=== PATIENT | male | born 2000 | race Hispanic/Latino ===

== ENCOUNTER 2022-02-20 22:56 | Inpatient (IN) | payer OTHER ==
--- OUTSIDE RECORDS SUMMARY | 2022-02-20 22:59 | XMS REPORT | Continuity of Care Document ---
:2000 Author Organization [facility] t Address [address] [place] [address] Care Team Providers Name Role Phone Triston Arreguin Primary Care Physician Only, Ang Db Test Attending Clinician Unavailable Daniel Terrazas Attending Clinician DANIEL MENON Attending Clinician Unavailable Dolly Sorto Attending Clinician DOLLY VERMA Attending Clinician Unavailable Neisha Barnett DO Attending Clinician Doctor Unassigned, [place] Attending Clinician Unavailable Only, Pcp Test Attending Clinician Unavailable Asa Denis MD Attending Clinician ASA DENIS Attending Clinician Unavailable Payers Payer Name Policy Type Policy Number Effective Date Expiration Date S ource Problems Condition Condition Condition Status Onset Resolution Last Treating Co mments Source Name Details Category Date Date Treatment Clinician Date Elevated Elevated Disease Active 2018-06 Unive rs IgE level IgE level 0-29 ity of 00:00: [address] Tobacco Tobacco Disease Active 2018-06 Univers use use 0-25 ity of disorder disorder 00:00: [address] Reactive Reactive Disease Active 2018-06 Unive rs thrombocyt thrombocyt 0-25 it y of osis osis 00:00: [address] Elevated Elevated Disease Active 2018-06 Unive rs sed rate sed rate 0-25 ity of 00:00: [place] 00 [facility] Elevated Elevated Disease Active 2018-06 Unive rs C-reactive C-reactive 0-25 it y of protein protein 00:00: [place] (CRP) (CRP) 00 Medical Branch Acute lung Acute lung Disease Active 2018-06 U nivers injury, injury, 0-25 ity of initial initial 00:00: [place] encounter encounter 00 [facility] laisha Branch Multifocal Multifocal Disease Active 2018-06 U nivers pneumonia pneumonia 0-23 ity of 00:00: [place] 00 [facility] Intractabl Intractabl Disease Active 2018-06 U nivers e vomiting e vomiting 0-22 it y of with with 00:00: [place] nausea nausea 00 Medical [place] Allergies, Adverse Reactions, Alerts Allergy Allergy Status Severity Reaction(s) Onset Inactive Treating Comm ents Source Name Type Date Date Clinician NO KNOWN Drug Active Univers ALLERGIE Class ity of S [facility] Social History Social Habit Start Date Stop Date Quantity Comments Source Exposure to Not sure [facility] SARS-CoV-[address] [facility] (event) [place] Tobacco use and 2019-05-11 2019-05-11 Never used Universit y of exposure 00:00:00 00:00:00 [facility] Alcohol intake 2019-05-11 2019-05-11 Ex-drinker University of 00:00:00 00:00:00 (finding) [facility] Tobacco Comment 2019-04-11 2019-04-11 vapes Universit y of 00:00:00 00:00:00 [facility] History of 2019-04-11 Smoker University of tobacco use 00:00:00 [facility] Sex Assigned At [birth year] Universit y of 00:00:00 00:00:00 [facility] Smoking Status Start Date Stop Date Source Former smoker 2019-05-11 00:00:00 2019-05-11 00:00:00 Universi ty of [facility] Medications Ordered Filled Start Stop Current Ordering Indication Dosage Frequency Signature Comments Components Source Medication Medication Date Date Medication? Clinician (SIG) Name Name predniSONE 2018-06 Yes [id number] 10mg Take 1 Univers 10 mg 1-10 tablet by ity of tablet 00:00: mouth 00 daily. Medical Branch predniSONE 2018-06 Yes [id number] 10mg Take 1 Univers 10 mg 1-10 tablet by ity of tablet 00:00: mouth [place] 00 daily. Medical Branch predniSONE 2018-06 Yes [id number] 10mg Take 1 Univers 10 mg 1-10 tablet by ity of tablet 00:00: mouth [place] 00 daily. Medical Branch predniSONE 2018-06 Yes [id number] 10mg Take 1 Univers 10 mg 1-10 tablet by ity of tablet 00:00: mouth [place] 00 daily. [facility] Branch predniSONE 2018-06 Yes [id number] 10mg Take 1 Univers 10 mg 1-10 tablet by ity of tablet 00:00: mouth [place] 00 daily. [facility] Branch predniSONE 2018-06 Yes [id number] 10mg Take 1 Univers 10 mg 1-10 tablet by ity of tablet 00:00: mouth [place] 00 daily. [facility] Branch predniSONE 2018-06 Yes [id number] 10mg Take 1 Univers 10 mg 1-10 tablet by ity of tablet 00:00: mouth [place] 00 daily. [facility] Branch predniSONE 2018-06 Yes [id number] 10mg Take 1 Univers 10 mg 1-10 tablet by ity of tablet 00:00: mouth [place] 00 daily. [facility] Procedures Procedure Date / Time Performing Clinician Source Performed AUTHORIZATION FOR 2020-04-15 05:01:00 Doctor Unassigned, No [facility] RELEASE OF PHI Name [facility] Encounters Start End Encounter Admission Attending Care Care Encounter Source Date/Time Date/Time Type Type Clinicians Facility Department ID 2021-03-09 2021-03-09 Laboratory Only, Ang Db Test [facility] 1.2.8 40.114 [id number] Univers 13:40:48 13:56:34 Only Karel MenonInfiKno [id number] ity of [place] [id number] Iraj as [place]?Blea [id number] [address] Medical Office Building 2021-03-09 2021-03-09 Outpatient R [facility] [id number] Univers 13:30:00 13:30:00 [id number] ity [facility] 2021-03-09 2021-03-09 Outpatient R LYNSEY [facility] [id number] Univers 13:30:00 13:30:00 DANIEL ity [facility] 2021-03-05 2021-03-05 Laboratory Only, Ang Db Test [facility] 1.2.8 40.114 [id number] Univers 16:04:09 16:22:23 Only Bayron Mardil Medical [id number] ity of [place] [id number] Iraj as [place]?Blea [id number] In dical kney [address] [place] [facility] 2021-03-05 2021-03-05 Outpatient R [facility] [id number] Univers 16:15:00 16:15:00 [id number] ity [facility] 2021-03-05 2021-03-05 [facility] [id number] Univers 16:15:00 16:15:00 DOLLY ity [facility] 2020-04-23 2020-04-23 Telephone Ericka [facility] [id number] Univers 00:00:00 00:00:00 Shivandanan [place] [id number] i [id number] [phone] In dical nal 085 [facility] 2020-04-15 2020-04-15 Orders Doctor SHY [id number] Univers 00:00:00 00:00:00 Only Unassigned, ALLAN [id number] ity of [place] [facility] [id number] Iraj as [id number] [address] 2019-12-08 2019-12-08 Laboratory Only, Pcp Test [facility] 1.2.840. 114 [id number] Univers 18:13:44 18:28:44 Only Asa Denis PRIMARY [id number] [id number] [facility] [id number] In [place] [address] [place] 2019-12-08 2019-12-08 Outpatient R [facility] [id number] Univers 18:15:00 18:15:00 [id number] [facility] 2019-12-[facility] 2019-12-08 Outpatient R JANNETH [facility] [id number] Univers 18:15:00 18:15:00 ASA dali [facility] Results This patient has no known results.
[2022-02-20 23:26] LABS: Absolute Lymphocytes (CBC) 0.6 K/uL (0.7-4.9); Hematocrit 52.5 % (39.6-49.0); MCV 83.1 fL (80-100); MPV 8.9 fL (7.6-11.3); RBC Red Blood Cell Count 6.32 M/uL (4.33-5.43)
[2022-02-20] MEDS ORDERED: ONDANSETRON 4 MG/2 ML VIAL ONE (23:27)
[2022-02-21 00:10] LABS: Albumin 5.5 g/dL (3.4-5.0); Bilirubin Total 1.5 mg/dL (0.2-1.0); Potassium 3.7 mmol/L (3.5-5.1); Protein, Total 9.1 g/dL (6.4-8.2)
[2022-02-21] MEDS ORDERED: MAGNES/ALUMIN/SIMET 30ML UCUP ONE (00:14)
[2022-02-21] MEDS ORDERED: PANTOPRAZOLE 40 MG INJ ONE (00:15)
[2022-02-21] MEDS ORDERED: NA CHLORIDE 0.9% 1,000 ML ONE ×2 (00:15→01:03)
[2022-02-21] MEDS ORDERED: LIDOCAINE VISCOUS 2% SOLN 15 ML UDC ONE (00:15)
[2022-02-21] MEDS ORDERED: LORazepam 2 MG/ML VIAL ONE (00:15)
[2022-02-21] MEDS ORDERED: ONDANSETRON 4 MG/2 ML VIAL ONE (00:15)
--- NOTE | 2022-02-21 00:39 | EDPHYS ---
Physician Documentation [facility] Name: Mynor Soto Age: 22 yrs Sex: Male : 2000 Arrival Date: 02/20/2022 Time: 23:00 Bed 4 Private MD: ED Physician Long Young HPI: 02/21 00:02 This 22 yrs old Male presents to ER via Ambulatory with complaints of Vomiting.jose 00:02 The patient presents to the emergency department with nausea, vomiting, that is jose continuous. Onset: The symptoms/episode began/occurred 2 day(s) ago. Possible causes: unknown. The symptoms are aggravated by nothing. The symptoms are alleviated by remaining still. Associated signs and symptoms: Pertinent positives: abdominal pain, nausea, vomiting. Associated signs and symptoms: The patient has no apparent associated signs or symptoms. Severity of symptoms: At their worst the symptoms were moderate. Historical: - Allergies: 02/20 23:10 No Known Allergies; as6 - Home Meds: 23:10 None [Active]; as6 - PMHx: 23:10 None; as6 - PSHx: 23:10 None; as6 - Immunization history:: Client reports having NOT received the Covid vaccine. - Social history:: Smoking status: Patient denies any tobacco usage or history of. - Family history:: not pertinent. ROS: 02/21 00:02 Constitutional: Negative for fever, chills, and weight loss, Eyes: Negative for injury, jose pain, redness, and discharge, ENT: Negative for injury, pain, and discharge, Neck: Negative for injury, pain, and swelling, Cardiovascular: Negative for chest pain, palpitations, and edema, Respiratory: Negative for shortness of breath, cough, wheezing, and pleuritic chest pain, Back: Negative for injury and pain, : Negative for injury, bleeding, discharge, and swelling, MS/Extremity: Negative for injury and deformity, Skin: Negative for injury, rash, and discoloration, Neuro: Negative for headache, weakness, numbness, tingling, and seizure, Psych: Negative for depression, anxiety, suicide ideation, homicidal ideation, and hallucinations, Allergy/Immunology: Negative for hives, rash, and allergies, Endocrine: Negative for neck swelling, polydipsia, polyuria, polyphagia, and marked weight changes, Hematologic/Lymphatic: Negative for swollen nodes, abnormal bleeding, and unusual bruising. Abdomen/GI: Positive for nausea and vomiting. Psych: Positive for anxiety, depression. Exam: 00:03 Constitutional: This is a well developed, well nourished patient who is awake, alert, jose and in no acute distress. Head/Face: Normocephalic, atraumatic. Eyes: Pupils equal round and reactive to light, extra-ocular motions intact. Lids and lashes normal. Conjunctiva and sclera are non-icteric and not injected. Cornea within normal limits. Periorbital areas with no swelling, redness, or edema. ENT: Nares patent. No nasal discharge, no septal abnormalities noted. Tympanic membranes are normal and external auditory canals are clear. Oropharynx with no redness, swelling, or masses, exudates, or evidence of obstruction, uvula midline. Mucous membranes moist. Neck: Trachea midline, no thyromegaly or masses palpated, and no cervical lymphadenopathy. Supple, full range of motion without nuchal rigidity, or vertebral point tenderness. No Meningismus. Chest/axilla: Normal chest wall appearance and motion. Nontender with no deformity. No lesions are appreciated. Cardiovascular: Regular rate and rhythm with a normal S1 and S2. No gallops, murmurs, or rubs. Normal PMI, no JVD. No pulse deficits. Respiratory: Lungs have equal breath sounds bilaterally, clear to auscultation and percussion. No rales, rhonchi or wheezes noted. No increased work of breathing, no retractions or nasal flaring. Back: No spinal tenderness. No costovertebral tenderness. Full range of motion. Skin: Warm, dry with normal turgor. Normal color with no rashes, no lesions, and no evidence of cellulitis. MS/ Extremity: Pulses equal, no cyanosis. Neurovascular intact. Full, normal range of motion. Neuro: Awake and alert, GCS 15, oriented to person, place, time, and situation. Cranial nerves II-XII grossly intact. Motor strength 5/5 in all extremities. Sensory grossly intact. Cerebellar exam normal. Normal gait. Psych: Awake, alert, with orientation to person, place and time. Behavior, mood, and affect are within normal limits. 00:03 Musculoskeletal/extremity: DVT Exam: No signs of deep vein thrombosis. no pain, no swelling, no tenderness, negative Homans' sign noted on exam, no appreciated bluish discoloration, no erythema, no increased warmth. Vital Signs: 02/20 23:06 BP 160 / 110; Pulse 96; Resp 20 S; Temp 98.3(O); Pulse Ox 98% on R/A; Weight 81.65 kg as6 (R); Height 5 ft. 10 in. (177.80 cm) (R); Pain 4/10; 02/21 00:28 BP 120 / 94; Pulse 91; Resp 23; Pulse Ox 99% on R/A; kd3 02:06 BP 128 / 83; Pulse 82; Resp 19; Pulse Ox 99% on R/A; kd3 03:30 BP 100 / 65; Pulse 78; Resp 19; Pulse Ox 98% on R/A; ll3 02/20 23:06 Body Mass Index 25.83 (81.65 kg, 177.80 cm) as6 MDM: 02/20 23:35 Patient medically screened. [facility] 02/21 00:04 Differential diagnosis: Nonspecific abd pain, gastritis, pancreatitis, diverticulitis, jose viral gastroenteritis, gastroenteritis. Data reviewed: vital signs, nurses notes, lab test result(s), EKG, radiologic studies, plain films. Data interpreted: monitor technician: rate is 96 beats/min, rhythm is regular, Pulse oximetry: on room air is 98 %. Test interpretation: by ED physician or midlevel provider:. Counseling: I had a detailed discussion with the patient and/or guardian regarding: the historical points, exam findings, and any diagnostic results supporting the discharge/admit diagnosis, lab results, radiology results, the need for outpatient follow up, for definitive care, a family practitioner, a psychiatrist. 02/20 23:11 Order name: CBC with Diff; Complete Time: 23:38 02/20 23:11 Order name: CMP; Complete Time: 00:34 [facility] 02/20 23:11 Order name: Lipase; Complete Time: 00:34 02/21 00:02 Order name: UDS; Complete Time: 01:20 [facility] 02/21 00:35 Order name: Uric Acid; Complete Time: 01:14 [facility] 02/21 00:36 Order name: CK; Complete Time: 01:14 [facility] 02/21 00:45 Order name: Pth,Intact; Complete Time: 04:25 la1 02/21 00:46 Order name: Ur Protein; Complete Time: 04:25 EDMS 02/21 00:48 Order name: Vitamin D, 25 (OH), TOTAL; Complete Time: 04:25 EDMS 02/21 00:48 Order name: Vitamin D,1,25 Dihydroxy EDMS 02/21 00:57 Order name: Urine Dipstick-Ancillary; Complete Time: 01:14 EDMS 02/21 01:15 Order name: SARS RAPID; Complete Time: 01:58 jose 02/21 06:59 Order name: Basic Metabolic Panel EDMS 02/21 07:09 Order name: T4 Free EDMS 02/20 23:11 Order name: IV Saline Lock; Complete Time: 23:21 as6 02/20 23:11 Order name: Labs collected and sent; Complete Time: 23:21 as6 02/21 00:35 Order name: CT Stone Protocol; Complete Time: 04:25 jose 02/21 00:45 Order name: Urine Dipstick-Ancillary (obtain specimen); Complete Time: 01:02 la1 02/21 07:09 Order name: Thyroid Stimulating Hormone EDMS 02/21 07:18 Order name: CBC with Automated Diff EDMS 02/21 08:04 Order name: US EDMS Administered Medications: 02/20 23:21 Drug: Zofran (Ondansetron) 4 mg Route: IVP; Site: right antecubital; as6 02/21 02:05 Follow up: Response: No adverse reaction kd3 00:11 Drug: NS 0.9% 1000 ml Route: IV; Rate: 1 bolus; Site: right antecubital; kd3 02:05 Follow up: Response: No adverse reaction; Rate change 1000 ml; IV Status: Completed kd3 infusion 00:11 Drug: Ativan (LORazepam) 1 mg Route: IVP; Site: right antecubital; kd3 02:05 Follow up: Response: No adverse reaction kd3 00:11 Drug: ProTONIX (pantoprazole) 40 mg Route: IVP; Site: right antecubital; kd3 02:05 Follow up: Response: No adverse reaction; Nausea is decreased kd3 00:11 Drug: GI Cocktail without - (Maalox Suspension 30 ml, Lidocaine Liquid 2 % 15 kd3 ml) Route: PO; 02:05 Follow up: Response: No adverse reaction kd3 00:11 Drug: Zofran (Ondansetron) 4 mg Route: IVP; Site: right antecubital; kd3 02:04 Follow up: Response: No adverse reaction; Nausea is decreased kd3 01:04 Drug: NS 0.9% 1000 ml Route: IV; Rate: 1 bolus; Site: right forearm; ll3 02:04 Follow up: Rate change 1000 ml; IV Status: Completed infusion kd3 Disposition Summary: 02/21/22 00:39 Hospitalization Ordered Hospitalization Status: Inpatient Admission jose Provider: Gavino Jarquin cha Condition: Fair jose Problem: new jose Symptoms: have improved jose Bed/Room Type: Standard jose Location: Telemetry/MedSurg (Inpatient)(02/21/22 16:10) eb Room Assignment: [facility](02/21/22 16:10) eb Diagnosis - Vomiting jose - Dehydration jose - Acute kidney failure, unspecified jose - Hypercalcemia jose - Adjustment disorder with anxiety jose Discharge Instructions: - Discharge Summary Sheet jose - Adjustment Disorder, Adult jose - Substance Use Disorder jose - Supporting Someone With an Addiction jose - Vomiting, Adult jose - Substance Use Disorder and Mental Illness jose - Illegal Drug Use Information, Adult jose Forms: - Medication Reconciliation Form jose - SBAR form jose Prescriptions: - Protonix 40 mg Oral Tablet - take 1 tablet by ORAL route once daily; 30 tablet; Refills: 0, Product jose Selection Permitted - Zofran 4 mg Oral Tablet - take 1 tablet by ORAL route every 12 hours As needed; 6 tablet; Refills: 0, jose Product Selection Permitted Signatures: Dispatcher [employer] Long Castillo MD MD cha Attema, Lee, BINDING CUTTER SYNTHETIC CLOTH-C BINDING CUTTER SYNTHETIC CLOTH-Cla1 Mona Alvarez RN RN Bambi Powers Ashby, RN RN as6 El Ansari RN RN ll3 Susan Crowell RN RN kd3 Corrections: (The following items were deleted from the chart) 01:12 00:39 Telemetry/MedSurg (Inpatient) jose cg 01:12 00:39 jose cg 16:10 01:12 BR ER HOLD cg eb 16:10 01:12 ERHOLD- cg eb
--- NOTE | 2022-02-21 00:39 | ER ---
Nurse's Notes [facility] Name: Mynor Soto Age: 22 yrs Sex: Male : 2000 Arrival Date: 02/20/2022 Time: 23:00 Bed 4 Private MD: Diagnosis: Vomiting;Dehydration;Acute kidney failure, unspecified;Hypercalcemia;Adjustment disorder with anxiety Presentation: 02/20 23:06 Chief complaint: Patient states: "I've been throwing up all day and my whole body as6 hurts". Coronavirus screen: At this time, the client does not indicate any symptoms associated with coronavirus-19. Ebola Screen: No symptoms or risks identified at this time. Initial Sepsis Screen: Does the patient meet any 2 criteria? No. Patient's initial sepsis screen is negative. Does the patient have a suspected source of infection? No. Patient's initial sepsis screen is negative. Risk Assessment: Do you want to hurt yourself or someone else? Patient reports no desire to harm self or others. Onset of symptoms was February 20, 2022. 23:06 Method Of Arrival: Ambulatory as6 23:06 Acuity: SHEFALI 3 as6 Triage Assessment: 02/21 00:27 GI: Reports nausea. kd3 Historical: - Allergies: 02/20 23:10 No Known Allergies; as6 - Home Meds: 23:10 None [Active]; as6 - PMHx: 23:10 None; as6 - PSHx: 23:10 None; as6 - Immunization history:: Client reports having NOT received the Covid vaccine. - Social history:: Smoking status: Patient denies any tobacco usage or history of. - Family history:: not pertinent. Screenin/03 00:27 Abuse screen: Denies threats or abuse. Denies injuries from another. Nutritional kd3 screening: No deficits noted. Tuberculosis screening: No symptoms or risk factors identified. Fall Risk Secondary diagnosis (15 points) impaired mobility, IV access (20 points). Assessment: 00:26 General: Appears in no apparent distress. Behavior is cooperative, drowsy. Pain: Denies kd3 pain. Neuro: Level of Consciousness is awake, alert, obeys commands, Oriented to person, place, time, situation. Respiratory: Airway is patent Trachea midline Respiratory effort is unlabored, asymmetrical. GI: Pt is actively vomiting bile, Abd is soft and non tender X 4 quads. 02:01 Reassessment: Patient and/or family updated on plan of care and expected duration. Pain kd3 level reassessed. Patient is alert, oriented x 3, equal unlabored respirations, skin warm/dry/pink. Patient states symptoms have improved. Neuro: Level of Consciousness is alert, obeys commands, Oriented to person, place, time, situation. Vital Signs: 02/20 23:06 BP 160 / 110; Pulse 96; Resp 20 S; Temp 98.3(O); Pulse Ox 98% on R/A; Weight 81.65 kg as6 (R); Height 5 ft. 10 in. (177.80 cm) (R); Pain 4/10; 02/21 00:28 BP 120 / 94; Pulse 91; Resp 23; Pulse Ox 99% on R/A; kd3 02:06 BP 128 / 83; Pulse 82; Resp 19; Pulse Ox 99% on R/A; kd3 03:30 BP 100 / 65; Pulse 78; Resp 19; Pulse Ox 98% on R/A; ll3 02/20 23:06 Body Mass Index 25.83 (81.65 kg, 177.80 cm) as6 ED Course: 02/20 23:00 Patient arrived in ED. bp1 23:10 Triage completed. as6 23:10 Arm band placed on. as6 23:10 Inserted saline lock: 20 gauge in right antecubital area, using aseptic technique. as6 Blood collected. 23:35 Long Young MD is Attending Physician. jose 23:39 Susan Crowell, SHYANN is Primary Nurse. kd3 02/21 00:27 Patient has correct armband on for positive identification. kd3 00:27 No provider procedures requiring assistance completed. kd3 00:37 Gavino Jarquin MD is Hospitalizing Provider. jose 01:08 CT Stone Protocol In Process Unspecified. EDMS 07:06 Primary Nurse role handed off by Susan Crowell, SHYANN bp 07:06 Isaak Ashley, SHYANN is Primary Nurse. bp 16:57 Patient admitted, IV remains in place. bp Administered Medications: 02/20 23:21 Drug: Zofran (Ondansetron) 4 mg Route: IVP; Site: right antecubital; as6 02/21 02:05 Follow up: Response: No adverse reaction kd3 00:11 Drug: NS 0.9% 1000 ml Route: IV; Rate: 1 bolus; Site: right antecubital; kd3 02:05 Follow up: Response: No adverse reaction; Rate change 1000 ml; IV Status: Completed kd3 infusion 00:11 Drug: Ativan (LORazepam) 1 mg Route: IVP; Site: right antecubital; kd3 02:05 Follow up: Response: No adverse reaction kd3 00:11 Drug: ProTONIX (pantoprazole) 40 mg Route: IVP; Site: right antecubital; kd3 02:05 Follow up: Response: No adverse reaction; Nausea is decreased kd3 00:11 Drug: GI Cocktail without - (Maalox Suspension 30 ml, Lidocaine Liquid 2 % 15 kd3 ml) Route: PO; 02:05 Follow up: Response: No adverse reaction kd3 00:11 Drug: Zofran (Ondansetron) 4 mg Route: IVP; Site: right antecubital; kd3 02:04 Follow up: Response: No adverse reaction; Nausea is decreased kd3 01:04 Drug: NS 0.9% 1000 ml Route: IV; Rate: 1 bolus; Site: right forearm; ll3 02:04 Follow up: Rate change 1000 ml; IV Status: Completed infusion kd3 Medication: 00:26 VIS not applicable for this client. kd3 Outcome: 00:39 Decision to Hospitalize by Provider. jose 16:57 Admitted to ER Hold. Please see [facility] for further documentation. bp 16:57 Condition: stable 16:57 Instructed on the need for admit. 17:49 Patient left the ED. bp Signatures: Dispatcher [employer] EDNJ Long Young MD MD cha Peltier, Brian, RN RN bp Angela Francis Ashby, RN RN as6 El Ansari RN RN ll3 Susan Crowell RN RN kd3
[2022-02-21 00:57] LABS: Urine Blood Trace-intact (Negative); Urine Glucose Negative (Negative); Urine Protein 1+ (Negative); Urine Specific Gravity >=1.030 (1.005-1.030)
[2022-02-21 01:03] LABS: Uric Acid 11.9 mg/dL (3.5-7.2)
[2022-02-21 01:15] LABS: Barbiturates NEGATIVE (NEGATIVE); Benzodiazepines NEGATIVE (NEGATIVE); Cocaine NEGATIVE (NEGATIVE); METHAMPHETAM NEGATIVE (NEGATIVE); Methadone NEGATIVE (NEGATIVE); Opiates NEGATIVE (NEGATIVE); Phencyclidine NEGATIVE (NEGATIVE); THC Cannibis POSITIVE (NEGATIVE)
[2022-02-21 01:53] LABS: SARS-CoV-2 Antigen Rapid Res Negative (Negative)
--- NOTE | 2022-02-21 02:21 | P.HP ---
Certification for Inpatient Patient admitted to: Inpatient With expected LOS: >2 Midnights Patient will require the following post-hospital care: None Practitioner: I am a practitioner with admitting privileges, knowledge of patient current condition, hospital course, and medical plan of care. Services: Services provided to patient in accordance with Admission requirements found in Title 42 Section 412.3 of the Code of Federal Regulations <Christophe Sagastume Chi - Last Filed: 02/21/22 02:11> Patient History Date of Service: 02/21/22 History of Present Illness: Otherwise healthy 22-year-old male presents the emergency department for nausea/vomiting. He reports feeling unwell for the last 2 weeks vomiting began today. He does report use of delta 8 synthetic cannabinoid periodically including today. He was evaluated in the emergency department found to be in acute renal failure with mild hypercalcemia, high anion gap metabolic acidosis with leukocytosis. No source of infection identified or suspected. Patient was given 2 L of normal saline as well as Zofran in the emergency department with relief of the nausea and is tolerating clear liquids at this time. ED provider wishes to admit for acute renal failure. 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 - Family History Mother Notes: crohns - Social History Alcohol use: Yes CD- Drugs: Yes Caffeine use: Yes Place of Residence: Home <Christophe Sagastume Erika Mireles - Last Filed: 02/21/22 02:11> Date of Service: 02/21/22 <Gavino Jarquin - Last Filed: 02/21/22 15:24> Review of Systems 10-point ROS is otherwise unremarkable Gastrointestinal: Nausea, Vomiting <Christophe Sagastume Erika Mireles - Last Filed: 02/21/22 02:11> Physical Examination - Physical Exam General: Alert, In no apparent distress, Oriented x3 HEENT: Atraumatic, PERRLA, Mucous membr. moist/pink, EOMI, Sclerae nonicteric Neck: Supple, 2+ carotid pulse no bruit, No LAD, Without JVD or thyroid abnormality Respiratory: Clear to auscultation bilaterally, Normal air movement Cardiovascular: Regular rate/rhythm, Normal S1 S2 Capillary refill: <2 Seconds Gastrointestinal: Normal bowel sounds, No tenderness Musculoskeletal: No tenderness Integumentary: No rashes Neurological: Normal speech, Normal strength at 5/5 x4 extr, Normal tone Lymphatics: No axilla or inguinal lymphadenopathy - Studies Laboratory Data (last 24 hrs) 02/20/22 23:18: Uric Acid 11.9 H 02/20/22 23:18: Sodium 140, Potassium 3.7, BUN 30 H, Creatinine 2.46 H, Glucose 153 H, Total Bilirubin 1.5 H, AST 16, ALT 27, Alkaline Phosphatase 69, Lipase 75 02/20/22 23:18: WBC 15.70 H, Hgb 17.6, Hct 52.5 H, Plt Count 296 <Christophe Sagastume - Last Filed: 02/21/22 02:11> - Studies Laboratory Data (last 24 hrs) 02/20/22 23:18: Uric Acid 11.9 H 02/20/22 23:18: Sodium 140, Potassium 3.7, BUN 30 H, Creatinine 2.46 H, Glucose 153 H, Total Bilirubin 1.5 H, AST 16, ALT 27, Alkaline Phosphatase 69, Lipase 75 02/20/22 23:18: WBC 15.70 H, Hgb 17.6, Hct 52.5 H, Plt Count 296 <Gavino Jarquin - Last Filed: 02/21/22 15:24> Assessment and Plan - Plan Assessment: Acute renal failure Plan: Acute renal failure: Given 2L NS in ED, continue IVF, renal US ordered, nephrology consulted. Also has mild hypercalcemia, pth/vit d levels ordered as well as TSH. Patient admits to the use of delta 8 synthetic cannabinoids as well as frequent episodes of nausea relieved by hot showers, possibly cannabis hyperemesis is contributing. Denies use of NSAIDs, contrast or ABX exposure. Appreciate further input from nephrology. DVT PPX: Heparin Code status: Full Discharge Plan: Home Plan to discharge in: 48 Hours - Advance Directives Does patient have a Living Will: No Does patient have a Durable POA for Healthcare: No - Code Status/Comfort Care Code Status Assessed: Yes (Full code) Critical Care: No Time Spent Managing Pts Care (In Minutes): 55 <Christophe Sagastume - Last Filed: 02/21/22 02:11> - Plan Patient seen and examined on rounds this morning Agree with plan of care as noted above Continue IVF Patient reports feeling very tired, suspect dehydration, has been very stressed lately, lots of strenuous activity moving out of home Anticipate DC home tomorrow <Gavino Jarquin - Last Filed: 02/21/22 15:24>
[2022-02-21 03:06] LABS: UR CREAT > 720.0 mg/dL (20-370)
--- NOTE | 2022-02-21 04:10 | RAD REPORT ---
EXAM DESCRIPTION: CT - Stone Protocol - 02/21/2022 1:06 am CLINICAL HISTORY: Flank pain. ARF COMPARISON: No comparisons TECHNIQUE: Axial images were obtained without oral or IV contrast. Lack of contrast limits solid org an and vascular assessment. The [id number] spans the entirety of the system partially obscuring uppermost abdomen and lung bases. Coronal reformatted images were obtained and reviewed. All CT scans are performed using dose optimization technique as appropriate and may include automated exposure control or mA/KV adjustment according to patient size. FINDINGS: The lower lung lowery are clear. Imaged portions of the liver and spleen show no suspicious findings on non-contrast imaging. The panc reas and adrenal glands are normal. No pathologic lymphadenopathy in the abdomen or pelvis. No urinary tract stones or obstructive uropathy. No bowel obstruction, free air, free fluid or abscess. Normal appendix noted. No significant bony abnormality. IMPRESSION: No urinary tract stones or obstructive uropathy.
[2022-02-21] MEDS ORDERED: ONDANSETRON 4 MG/2 ML VIAL IV PRN (05:14)
[2022-02-21] MEDS: Ringers Lactate 1,000 ML IV SCH ×2 (05:14→15:14)
[2022-02-21] MEDS ORDERED: ACETAMINOPHEN 500 MG TAB PO PRN (05:14)
[2022-02-21] MEDS ORDERED: Ringers Lactate 1,000 ML IV ONE ×2 (06:07→16:05)
[2022-02-21 06:57] LABS: Potassium 3.8 mmol/L (3.5-5.1)
[2022-02-21 07:08] LABS: Absolute Lymphocytes (CBC) 1.3 K/uL (0.7-4.9); Hematocrit 43.2 % (39.6-49.0); Lymphocytes % 10.5 % (15.3-44.8); MCV 83.8 fL (80-100); MPV 8.9 fL (7.6-11.3); RBC Red Blood Cell Count 5.16 M/uL (4.33-5.43); Thyroid Stimulating Hormone 0.212 uIU/mL (0.360-3.740)
--- NOTE | 2022-02-21 08:03 | RAD REPORT ---
EXAM DESCRIPTION: US - Renal Ultrasound-Complete - 02/21/2022 7:08 am CLINICAL HISTORY: arf COMPARISON: Stone Protocol dated 02/21/2022 FINDINGS: Both kidneys are normal in size, shape and echotexture. The right kidney measures 10.7 cm. No hydronephrosis or perinephric fluid. No suspicious mass identif ied. The left kidney measures 8.5 cm. No hydronephrosis or perinephric fluid. No suspicious mass identifie d. Unremarkable bladder. IMPRESSION: Unremarkable renal sonogram. No evidence of hydronephrosis.
[2022-02-21] MEDS: HEPARIN 5000 UNIT/ML 1 ML VIAL SQ SCH ×2 (09:00→21:04)
--- NOTE | 2022-02-21 15:34 | CON ---
Date of Consultation: 02/21/2022 Reason For Consultation: Acute renal failure. History Of Present Illness: Mr. Soto is a 22-year-old young man with no significant past medical history, presented to [facility] because of severe nausea and vomiting. He r eports feeling unwell for the 2 weeks prior to admission; however, he started to have severe vomiting and he could not keep anything down. He reports use of Delta-8 which is a synthetic cannabinoid per iodically and occasionally Delta-9, which also has THC in it. He states that he has been having hard time dealing with his emotional and physical issues and he was found to have acute renal failure wit h hypercalcemia, started on IV fluids and is currently being monitored closely. He continues to have nausea, but is able to tolerate water intake okay. He is willing to try a clear liquid diet at this time. Past Medical History: None. Past Surgical History: None. Social History: Lives at home with his father. 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 No history of alcohol use; however, reports drug use and also smoking. Family History: Significant for mother with history of Crohn disease. Review of Systems: Positive for nausea and vomiting and nervousness and anxiety. All other review of systems are negati ve. Physical Examination: Vital Signs: At this time are showing no temperature has been recorded, pulse rate of 51, respirator y rate of 16, and blood pressure 107/60. General: He appears in no acute distress. HEENT: Atraumatic head. Lungs: Clear to auscultation. Neck: Supple. No thyromegaly was noted. No JVD was noted. Extremities: Showed no evidence of edema. Neurologic: He is alert, awake, and oriented x3. He is a little tearful, but otherwise mood seems t o be appropriate at this time. Laboratory Data: Showing creatinine improving to 1.68, calcium improving to 9 from 11.7, sodium of 1 42, potassium of 3.8. PTH was less than 6.3. Hemoglobin, hematocrit, and platelet count were stable and WBC count improving to 12.4 from 15.7. Renal ultrasound showed no acute findings. CT scan of h is abdomen was done, which showed no evidence of any urinary tract stones or obstructive uropathy. Impression: 1.Acute renal failure, likely secondary to dehydration and acute tubular necrosis. At this time, re nal function seems to be improving. The patient is getting LR at 100 cc an hour, which we will lina nue at this time. 2.Underlying anxiety and depression. The patient was advised to seek psychiatric attention and avoi d using illicit drugs. Plan: Overall the patient is doing okay. His hypercalcemia has resolved and is consistent with dehy dration from severe nausea and vomiting. Continue to monitor closely and we will follow up. ANOOP/FITZ Voice ID: [id number] Report ID: [id number]
[2022-02-22 02:30] VITALS: O2SAT 97
[2022-02-22] MEDS: Ringers Lactate 1,000 ML IV SCH (03:28)
[2022-02-22 05:13] VITALS: BMI 24.0
[2022-02-22 06:44] LABS: Absolute Lymphocytes (CBC) 2.4 K/uL (0.7-4.9); Hematocrit 41.5 % (39.6-49.0); Lymphocytes % 32.8 % (15.3-44.8); MCV 85.7 fL (80-100); MPV 8.7 fL (7.6-11.3); RBC Red Blood Cell Count 4.84 M/uL (4.33-5.43)
[2022-02-22 06:58] LABS: Albumin 3.4 g/dL (3.4-5.0); Bilirubin Total 0.9 mg/dL (0.2-1.0); Potassium 4.1 mmol/L (3.5-5.1); Protein, Total 5.8 g/dL (6.4-8.2)
[2022-02-22 07:48] VITALS: BP 109/64; TEMP 97.4
[2022-02-22] MEDS: HEPARIN 5000 UNIT/ML 1 ML VIAL SQ SCH (09:10)
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
[2022-02-25 10:16] LABS: Vitamin D 1,25-Dihydroxy Total 54 pg/mL (18-72); Vitamin D,1,25-OH2, D2 <8 pg/mL
== END 2022-02-22 11:41 | disposition home or self-care (01) | DRG 684 ==
LOC: ER 22:56 → ERHOLD 02-21 01:20 → 2ND 02-21 16:49
PROVIDERS: ADMIT Hospitalist; ATTEND Hospitalist
DX: N17.0 Acute kidney failure with tubular necrosis (principal); E83.52 Hypercalcemia; F12.90 Cannabis use, unspecified, uncomplicated; E86.0 Dehydration; F41.9 Anxiety disorder, unspecified; F32.A Depression, unspecified; R11.2 Nausea with vomiting, unspecified; Z20.822 Contact with and (suspected) exposure to COVID-19
CPT/HCPCS: 36415; 74176; 76377; 76770; 80048; 80053; 80307; 81003; 82306; 82550; 82570; 82652; 83690; 83970; 84156; 84439; 84443; 84550; 85025; 87811; 96361; 96374; 96375; 99285; C9113; J1644; J2405; J7030; J7120

== ENCOUNTER 2022-08-27 08:33 | Emergency (ER) | payer OTHER ==
--- OUTSIDE RECORDS SUMMARY | 2022-08-27 08:37 | XMS REPORT | Continuity of Care Document ---
:2001 Author Organization [facility] t Address [address] [facility] [place] [address] Care Team Providers Name Role Phone PCP, PATIENT DOES NOT HAVE A Primary Care Physician Unavaila TORI Burch Attending Clinician Unavailable Only, Ang Db Test Attending Clinician Unavailable Unknown, Attending Attending Clinician Unavailable BRANT DEL ROSARIO Attending Clinician Unavailable Brant Blackwell Attending Clinician PLACIDO GARCIA Attending Clinician Unavailable Placido Echeverria Attending Clinician Daniel Terrazas Attending Clinician DANIEL MENON Attending Clinician Unavailable Dolly Sorto Attending Clinician DOLLY VERMA Attending Clinician Unavailable Neisha Barnett DO Attending Clinician Doctor Unassigned, [place] Attending Clinician Unavailable Only, Pcp Test Attending Clinician Unavailable Asa Denis MD Attending Clinician ASA DENIS Attending Clinician Unavailable PLACIDO GARCIA Admitting Clinician Unavailable Payers Payer Name Policy Type Policy Number Effective Date Expiration Date Maria Guadalupe RIZO II [id number] 2018 00:00:00 [facility] [id number] 2020 PPO 00:00:00 Problems Condition Condition Condition Status Onset Resolution Last Treating Co mments Source Name Details Category Date Date Treatment Clinician Date Encounter Encounter Disease Active 2021-06 Uni vers to to 0-12 [place] [facility] Anxiety Anxiety Disease Active 2021-06 [place] [facility] Need for Need for Disease Active 2021-06 Unive rs influenza influenza 0-12 [place] [facility] Hospital Hospital Disease Active 2021-06 Unive rs discharge discharge 0-12 ity of follow-up follow-up 00:00: [facility] s [facility] Marijuana Marijuana Disease Active 2021-06 Uni vers use use 0-12 ity of 00:00: [place] 00 [facility] Elevated Elevated Disease Active 2018-06 Unive rs IgE level IgE level 0-29 ity of 00:00: [place] [facility] Tobacco Tobacco Disease Active 2018-06 Univers use use 0-25 ity of disorder disorder 00:00: [place] 00 [facility] Reactive Reactive Disease Active 2018-06 Unive rs thrombocyt thrombocyt 0-25 it y of osis osis 00:00: [place] 00 [facility] Elevated Elevated Disease Active 2018-06 Unive rs sed rate sed rate 0-25 ity of 00:00: [place] 00 [facility] Elevated Elevated Disease Active 2018-06 Unive rs C-reactive C-reactive 0-25 it y of protein protein 00:00: [place] (CRP) (CRP) 00 [facility] Acute lung Acute lung Disease Active 2018-06 U nivers injury, injury, 0-25 ity of initial initial 00:00: [place] encounter encounter 00 [facility] Branch Multifocal Multifocal Disease Active 2018-06 U nivers pneumonia pneumonia 0-23 ity of 00:00: [address] Intractabl Intractabl Disease Active 2018- U nivers e vomiting e vomiting 0-22 it y of with with 00:00: [place] nausea nausea 00 [facility] Allergies, Adverse Reactions, Alerts Allergy Allergy Status Severity Reaction(s) Onset Inactive Treating Comm ents Source Name Type Date Date Clinician NO KNOWN Drug Active Univers ALLERGIE Class ity of S [facility] Social History Social Habit Start Date Stop Date Quantity Comments Source Exposure to 2022-04-29 2022-05-09 Not sure [facility] SARS-CoV-2 00:00:00 15:08:00 [place] Medical (event) Branch Tobacco Comment 2022-04-01 2022-04-01 vapes Universit y of 00:00:00 00:00:00 [facility] Tobacco use and 2022-04-01 2022-04-01 Smokeless tobacco Un iversity of exposure 00:00:00 00:00:00 non-user [facility] Alcohol intake 2022-04-01 2022-04-01 Ex-drinker [facility] 00:00:00 00:00:00 (finding) [facility] History of 2019-04-11 Cigarette Smoker [facility] ty of tobacco use 00:00:00 [facility] Sex Assigned At [birth year] Universit y of 00:00:00 00:00:00 [facility] Smoking Status Start Date Stop Date Source Tobacco smoking [facility] xa consumption unknown Medical Bran ch Ex-smoker 2022-04-01 00:00:00 2022-04-01 University o f [place] 00:00:00 [facility] Branch Medications Ordered Filled Start Stop Current Ordering Indication Dosage Frequency Signature Comments Components Source Medication Medication Date Date Medication? Clinician (SIG) Name Name esomeprazol 2021-06 Yes 20mg Take 20 mg Univers e 20 mg 0-01 by mouth ity of capsule 00:00: in the [place] 00 morning. Medical Branch SERTraline 2021-06 Yes 50mg Take 50 mg U nivers 50 mg 0-01 by mouth ity of tablet 00:00: in the [place] 00 morning. Medical Branch esomeprazol 2021-06 Yes 20mg Take 20 mg Univers e 20 mg 0-01 by mouth ity of capsule 00:00: in the [place] 00 morning. Medical Branch SERTraline 2021-06 Yes 50mg Take 50 mg U nivers 50 mg 0-01 by mouth ity of tablet 00:00: in the [place] 00 morning. Medical Branch ondansetron No 4mg 4 mg, Univ ers (ZOFRAN-ODT 03-09 Oral, ity of ) 04:45: 03:50 ONCE, 1 [place] disintegrat 00 :00 dose, On Medi laisha ing tablet [place] Branch 4 mg 03/08/22 at 2345, Routine amoxicillin 2021- No 1{tbl} 1 tablet, Univers -clavulanat 03-09 Oral, ity of e 04:30: 03:51 ONCE, 1 [place] (AUGMENTIN) 00 :00 dose, On Medi laisha 875-125 mg [place] Branch per tablet 03/08/22 at 1 tablet 2330, SHIVA
Re ason for Anti-Infec tive: Documented Infection< br>Documen jeffrey Infection Site: Abdominal< br>Duratio n of Therapy: 7 days iopamidol 2021- No [id number] 100mL 100 mL, Univers (ISOVUE 03-09 Intravenou ity o f 370-500 mL) 03:45: 02:47 s, ONCE, 1 [place] injection 00 :00 dose, On Medica l 100 mL [place] 03/08/22 at 2245, Routine NaCl 0.9% 2021- No 1000mL at 999 Uni vers (NS) bolus 03-09 mL/hr, ity of infusion 03:15: 04:34 1,000 mL, [place] 1,000 mL 00 :00 IV Medical Infusion, Branch ONCE, 1 dose, On [place] 03/08/22 at 2215, SHIVA NaCl 0.9% 2021- No 1000mL at 999 Uni vers (NS) bolus 03-09 mL/hr, ity of infusion 02:45: 04:34 1,000 mL, [place] 1,000 mL 00 :00 IV Medical Infusion, Branch ONCE, 1 dose, On [place] 03/08/22 at 2145, SHIVA pantoprazol 2021- No 40mg 40 mg, Uni vers e 03-09 Slow IV ity of (PROTONIX) 02:00: 02:06 Push, [place] injection 00 :00 ONCE, 1 Medical 40 mg dose, On Branch [place] 03/08/22 at 2100 haloperidol 2021- No 2.5mg 2.5 mg, U nivers lactate 03-09 Intravenou ity o f (HALDOL) 02:00: 02:05 s, [place]CE, 1 [place] injection [place] :[place] dose, On Medica l 2.5 mg [place] 03/08/22 at 2100, STAT ketorolac 2021- No 30mg 30 mg, Unive rs tromethamin 03-09 Slow IV ity of e (TORADOL) 02:00: 01:54 [place] injection 00 :00 ONCE, 1 Medical 30 mg dose, On Branch 03/08/22 at 2100, SHIVA ondansetron 2021- No 4mg 4 mg, Slow Univers (ZOFRAN 03-09 IV Push, ity of (PF)) 02:00: 01:53 ONCE, 1 [place] injection 4 00 :00 dose, On Medi laisha mg [facility] 03/08/22 at 2100, SHIVA ondansetron Yes [id number] 4mg Take 1 Univers 4 mg 9-18 tablet by ity of disintegrat 00:00: mouth [place] ing tablet 00 every 8 Medica l (eight) Branch hours as needed for Nausea and Vomiting (N/V). ondansetron Yes [id number] 4mg Take 1 Univers 4 mg 9-18 tablet by ity of disintegrat 00:00: mouth [place] ing tablet 00 every 8 Medica l (eight) Branch hours as needed for Nausea and Vomiting (N/V). ondansetron Yes [id number] 4mg Take 1 Univers 4 mg 9-18 tablet by ity of disintegrat 00:00: mouth [place] ing tablet 00 every 8 Medica l (eight) Branch hours as needed for Nausea and Vomiting (N/V). amoxicillin 2021- No [id number] 1{tbl} Take 1 Univers -clavulanat 03-08 tablet by it y of e 875-125 00:00: 04:59 mouth [place] mg per 00 :00 every 12 Medical tablet (twelve) Branch hours for 10 days. predniSONE 2018-06 Yes [id number] 10mg Take 1 Univers 10 mg 1-10 tablet by ity of tablet 00:00: mouth [place] 00 daily. Medical Branch predniSONE 2018-06 Yes [id number] 10mg Take 1 Univers 10 mg 1-10 tablet by ity of tablet 00:00: mouth [place] 00 daily. Medical Branch predniSONE 2018-06 Yes [id number] 10mg Take 1 Univers 10 mg 1-10 tablet by ity of tablet 00:00: mouth [place] 00 daily. Medical Branch predniSONE 2018- Yes [id number] 10mg Take 1 Univers 10 mg 1-10 tablet by ity of tablet 00:00: mouth [place] 00 daily. Medical Branch predniSONE 2018- Yes [id number] 10mg Take 1 Univers 10 mg 1-10 tablet by ity of tablet 00:00: mouth [place] 00 daily. Medical Branch predniSONE 2018- Yes [id number] 10mg Take 1 Univers 10 mg 1-10 tablet by ity of tablet 00:00: mouth [place] 00 daily. Medical Branch predniSONE 2018- Yes [id number] 10mg Take 1 Univers 10 mg 1-10 tablet by ity of tablet 00:00: mouth [place] 00 daily. Medical Branch predniSONE 2018- Yes [id number] 10mg Take 1 Univers 10 mg 1-10 tablet by ity of tablet 00:00: mouth [place] 00 daily. Medical Branch predniSONE 2018- Yes [id number] 10mg Take 1 Univers 10 mg 1-10 tablet by ity of tablet 00:00: mouth [place] 00 daily. Medical Branch predniSONE 2018- Yes [id number] 10mg Take 1 Univers 10 mg 1-10 tablet by ity of tablet 00:00: mouth [place] 00 daily. Medical Branch predniSONE 2018- Yes [id number] 10mg Take 1 Univers 10 mg 1-10 tablet by ity of tablet 00:00: mouth [place] 00 daily. [facility] Branch Immunizations Ordered Filled Immunization Date Status Comments [facility] e Immunization Name Name Influenza Virus 2022-04-01 Completed Universit y of Vaccine [place] IM, 00:00:00 [place] Me dical Preserv and ABX Branch Free 6 MO-64 YRS Influenza Virus 2022-04-01 Completed Universit y of Vaccine [place] IM, 00:00:00 [place] Me dical Preserv and ABX Branch Free 6 MO-64 YRS Vital Signs Vital Name Observation Time Observation Value Comments Source Systolic blood 2022-04-01 18:30:00 108 mm[Hg] Univer sity of pressure [facility] Diastolic blood 2022-04-01 18:30:00 66 mm[Hg] Unive rsity of pressure [facility] Heart rate 2022-04-01 18:29:00 66 /min [facility] Body height 2022-04-01 18:29:00 177.8 cm [facility] Body weight 2022-04-01 18:29:00 74.844 kg [facility] BMI 2022-04-01 18:29:00 23.68 kg/m2 [facility] Oxygen saturation in 2022-04-01 18:29:00 98 /min [facility] Arterial blood by [facility] Pulse oximetry Branch Heart rate 2022-03-09 04:22:00 65 /min [facility] Respiratory rate 2022-03-09 04:22:00 16 /min [facility] Oxygen saturation in 2022-03-09 04:22:00 96 /min [facility] Arterial blood by [facility] Pulse oximetry Branch Systolic blood 2022-03-09 04:22:00 121 mm[Hg] [facility] Diastolic blood 2022-03-09 04:22:00 69 mm[Hg] [facility] Body temperature 2022-03-09 01:43:00 36.78 May [facility] Body weight 2022-03-09 01:43:00 70.217 kg [facility] Procedures Procedure Date / Time Performing Clinician Source Performed FLU VACC ([id number]), 6 2022-04-01 19:21:46 Brant Del Rosario [facility] MO-65 YRS, .5ML, IM, Medical [facility] QUAD (FLUCELVAX) CT ABDOMEN PELVIS W 2022-03-09 02:49:31 Placido Garcia [facility] CONTRAST [facility] LIPASE 2022-03-09 01:51:00 Placido Garcia [facility] COMP. METABOLIC PANEL 2022-03-09 01:51:00 Placido Garcia [facility] ([id number]) [facility] CBC WITH DIFF 2022-03-09 01:51:00 Placido Garcia [facility] URINALYSIS 2022-03-09 01:51:00 Placido Garcia [facility] URINE DRUG (IMMUNOASSAY) 2022-03-09 01:51:00 [facility] SCREEN W/O REFLEX NOTICE OF PRIVACY 2022-03-09 01:41:07 Doctor Unassigned, No Univ [facility] PRACTICES Name [facility] CONSENT/REFUSAL FOR 2022-03-09 01:39:43 Doctor Unassigned, No [facility]REATMENT Name [facility] AUTHORIZATION FOR 2020-04-15 05:01:00 Doctor Unassigned, No [facility] RELEASE OF PHI Name [facility] Encounters Start End Encounter Admission Attending Care Care Encounter Source Date/Time Date/Time Type Type Clinicians Facility Department ID 2022-05-09 2022-05-09 Outpatient R ROSEMARIE [facility] [id number] Univers 15:00:00 15:20:10 TORI dali [facility] 2022-05-09 2022-05-09 Outpatient R ROSEMARIE [facility] [id number] Univers [facility]:00[facility] 2022-05-09 Laboratory Only, Ang Db Test RUST 1.2.8 40.114 [id number] Univers 15:00:00 15:15:00 Only Unknown, Attending HEALTH [id number] ity [facility] [id number] Iraj as CAYETANO?BLEA [id number] [place] [address] MEDICAL OFFICE BUILDING 2022-04-01 2022-04-01 Outpatient R ORESTES [facility] [id number] Univers 13:00:00 14:40:11 BRANT [place] [facility] 2022-04-01 2022-04-01 [facility] [id number] Univers 13:00:00 14:40:11 Visit [facility] [id number] it y of [place] [id number] Iraj as CAYETANO?BLEA [id number] [address] MEDICAL OFFICE BUILDING 2022-03-08 2022-03-08 Emergency X JOSE, RUST ERT [id number] Univers 20:45:00 23:36:00 PLACIDO [place] [facility] 2022-03-08 2022-03-08 Emergency [facility] [id number] Univers 20:45:00 23:36:00 Placido ACOSTA [id number] i ty [facility] 4.2.7.2.686 [place] [id number] [facility] [address] [place] 2021-03-09 2021-03-09 Laboratory Only, Ang Db Test RUST 1.2.8 40.114 [id number] Univers 13:40:48 13:56:34 Only Zachary Daniel [facility] [id number] ity of [place] [id number] Iraj as Cayetano?Blea [id number] [address] Office [facility] 2021-03-09 2021-03-09 Outpatient R ZACHARY [facility] [id number] Univers 13:30:00 13:30:00 [facility] 2021-03-05 2021-03-05 Laboratory Only, Ang Db Test RUST 1.2.8 40.114 [id number] Univers 16:04:09 16:22:23 Only Bayron [facility] [id number] ity of [place] [id number] Iraj as Cayetano?Blea [phone] [address] Office [facility] 2021-03-05 2021-03-05 Outpatient R BAYRON [facility] [id number] Univers 16:15:00 16:15:00 DOLLY ity [facility] 2020-04-23 2020-04-23 Sher Barnett RUST [id number] Univers 00:00:00 00:00:00 Neisha Aure [id number] i ty of [place].2.[place] [facility] [id number] [facility] 085 [facility] 2020-04-15 2020-04-15 Orders Doctor BEGUM 1.2.840.114 [id number] Univers 00:00:00 00:00:00 Only Unassigned, ALLAN [id number] ity of [place] [facility] [id number] Iraj as [id number] [facility] [address] [place] 2019-12-08 2019-12-08 Laboratory Only, Pcp Test RUST 1.2.840. 114 [id number] Univers 18:13:44 18:28:44 Only Asa Denis PRIMARY [id number] ity of CARE 4.2.7.2.686 Erika MARTINEZ [phone] [place] dical [facility] 2019-12-08 2019-12-08 Outpatient R JANNETH [facility] [id number] Univers 18:15:00 18:15:00 ASA ramos [facility] Results Test Description Test Time Test Comments Results Result Comments Source COMP. METABOLIC PANEL (00952) 2022-03-09 02:15:57 Test Item Value Reference Range Interpretation Comme nts NA (test code = 9721382033) 142 mmol/L 135-145 K (test code = 4691098139) 3.7 mmol/L 3.5-5 CL (test code = 3268114913) 109 mmol/L 98-108 H CO2 TOTAL (test code = 9740223654) 17 mmol/L 23-31 L AGAP (test code = 0667969786) 2-16 BUN (test code = 8869828875) 17 mg/dL 7-23 GLUCOSE (test code = 3858621757) 136 mg/dL 70-110 H CREATININE (test code = 1.12 mg/dL 0.6-1.25 9886196684) TOTAL BILI (test code = 1.5 mg/dL 0.1-1.1 H 9404233912) CALCIUM (test code = 7639701336) 11.5 mg/dL 8.6-10.6 H T PROTEIN (test code = 5422043686) 8.2 g/dL 6.3-8.2 ALBUMIN (test code = 7564723860) 5.6 g/dL 3.5-5 H ALK PHOS (test code = 5286365715) 65 U/L 34-122 ALTv (test code = 1742-6) 23 U/L 5-50 AST(SGOT) (test code = 0670891845) 26 U/L 13-40 eGFR (test code = 5620015495) mL/min/1.73m2 KENNETH (test code = KENNETH) Association of Glomerular Filtration Rate (GFR) and Staging of Kidney Disease* + +-------- + ------+| GFR (mL/min/1.73 m2) ?| With Kidney Damage ?| ?Without Kidney Damage+ +-- + +| ?>90 ?| ?Stage one ?| ? Normal ?+ +------- + -------+| ?60-89 ?| ?Stage two ?| ? Decreased GFR ? + +-------- + ------+| ?30-59 ?| ?Stage three ?| ? Stage three ? + +-------- + ------+| ?15-29 ?| ?Stage four ? | ? Stage four ?+ +------- + -------+| ?<15 (or dialysis) ? ?| ?Stage five ? | ? Stage five ?+ +------- + -------+ *Each stage assumes the associated GFR level has been in effect for at least three months. ?Stages 1 to 5, with or without kidney disease, indicate chronic kidney disease. Notes: Determination of stages one and two (with eGFR >59mL/min/1.73 m2) requires estimation of kidney damage for at least three months as defined by structural or functional abnormalities of the kidney, manifested by either:Pathological abnormalities or Markers of kidney damage (including abnormalities in the composition of the blood or urine or abnormalities in imaging tests). Lab Interpretation (test code = Abnormal 97883-6) [facility]57 Test Item Value Reference Range Interpretation Comments LIPASE (test code = 0818583384) 202 U/L 0-220 Lab Interpretation (test code = Normal 14833-4) [facility] [id number] 02:12:16 Test Item Value Reference Range Interpretation Comments WBC (test code = See_Comment H [Automated 5990-2) message] The system which generated this result transmit jeffrey reference range : 4.20 - 10.70 10*3/?L. The reference range was not used to interpret this result as normal/abnormal . RBC (test code = See_Comment H [Automated 889-8) message] The system which generated this result transmit jeffrey reference range : 4.26 - 5.52 10*6/?L. The reference range was not used to interpret this result as normal/abnormal . HGB (test code = 16.8 g/dL 12.2-16.4 H 718-7) HCT (test code = 48.2 % 38.4-49.3 4544-3) MCV (test code = 81.3 fL 81.7-95.6 L 787-2) MCH (test code = 28.3 pg 26.1-32.7 785-6) MCHC (test code = 34.9 g/dL 31.2-35 786-4) RDW-SD (test code = 40.8 fL 38.5-51.6 48969-0) RDW-CV (test code = 14.0 % 12.1-15.4 788-0) PLT (test code = See_Comment [Automated 777-3) message] The system which generated this result transmit jeffrey reference range : 150 - 328 10*3/ ?L. The reference range was not u sed to interpret th is result as normal/abnormal . MPV (test code = 10.2 fL 9.8-13 44378-4) NRBC/100 WBC (test See_Comment [Automat ed code = 3173105155) message] The system which generated this result transmit jeffrey reference range : 0.0 - 10.0 /100 WBCs. The reference range was not used to interpret this result as normal/abnormal . NRBC x10^3 (test code See_Comment [Auto mated = 3318051796) message] The system which generated this result transmit jeffrey reference range : 10*3/?L. The reference range was not used to interpret this result as normal/abnormal . GRAN MAT (NEUT) % 89.0 % (test code = 770-8) IMM GRAN % (test code 0.40 % = 2910145615) LYMPH % (test code = 5.0 % 736-9) MONO % (test code = 5.4 % 5905-5) EOS % (test code = 0.0 % 713-8) BASO % (test code = 0.2 % 706-2) GRAN MAT x10^3(ANC) 16.51 10*3/uL 1.99-6.95 H (test code = 6012774393) IMM GRAN x10^3 (test 0.07 10*3/uL 0-0.06 H code = 4557760481) LYMPH x10^3 (test code 0.93 10*3/uL 1.09-3.23 L = 731-0) MONO x10^3 (test code 1.00 10*3/uL 0.36-1.02 = 742-7) EOS x10^3 (test code = 0.06-0.53 L 711-2) BASO x10^3 (test code 0.03 10*3/uL 0.01-0.09 = 704-7) Lab Interpretation Abnormal (test code = 74913-4) [facility]"
[2022-08-27 09:37] LABS: Absolute Lymphocytes (CBC) 1.1 K/uL (0.7-4.9); Lymphocytes % 11.6 % (15.3-44.8); MCV 83.4 fL (80-100); MPV 8.6 fL (7.6-11.3); RBC Red Blood Cell Count 5.87 M/uL (4.33-5.43)
[2022-08-27] MEDS ORDERED: ONDANSETRON 4 MG/2 ML VIAL ONE ×2 (09:38→10:18)
[2022-08-27] MEDS ORDERED: NA CHLORIDE 0.9% 1,000 ML ONE ×2 (09:38→10:18)
[2022-08-27 09:54] LABS: Bilirubin Total 1.4 mg/dL (0.2-1.0); Potassium 3.2 mmol/L (3.5-5.1); Protein, Total 8.3 g/dL (6.4-8.2)
[2022-08-27] MEDS ORDERED: POTASSIUM CL SA 10 MEQ TAB PO ONE (10:18)
[2022-08-27 11:34] LABS: Urine Blood Negative (Negative); Urine Glucose Negative (Negative); Urine Protein 1+ (Negative); Urine pH 6.5 (5.0-7.0)
[2022-08-27] MEDS ORDERED: PROMETHAZINE INJ 25 MG/ML AMP ONE (11:47)
[2022-08-27 12:35] VITALS: TEMP 97.1
[2022-08-27 12:45] VITALS: BP 115/62; O2SAT 99
--- NOTE | 2022-09-11 15:28 | EDPHYS ---
Physician Documentation [facility] Name: Mynor Soto Age: 22 yrs Sex: Male : 2000 Arrival Date: 08/27/2022 Time: 08:35 Bed 11 Private MD: ED Physician Peng Jarquin HPI: 08/27 09:15 This 22 yrs old Male presents to ER via Ambulatory with complaints of pm1 Black/Tarry Stools, Vomiting. 09:15 The patient presents to the emergency department nausea and vomiting. Dark stools after pm1 taking Pepto Bismol . Onset: The symptoms/episode began/occurred nausea and vomiting onset 3 days ago. Dark stool today - took Pepto Bismol yesterday. Abdominal pain: none is appreciated. Modifying factors: The symptoms are alleviated by nothing, the symptoms are aggravated by water. Associated signs and symptoms: Pertinent negatives: chest pain, constipation, diarrhea, fever. Severity of symptoms: in the emergency department the symptoms are unchanged. The patient has not experienced similar symptoms in the past. The patient has not recently seen a physician. Historical: - Allergies: 08:39 No Known Allergies; hb ROS: 09:15 Constitutional: Negative for fever, chills, and weight loss, Cardiovascular: Negative pm1 for chest pain, palpitations, and edema, Respiratory: Negative for shortness of breath, cough, wheezing, and pleuritic chest pain. 09:15 Back: Negative for injury and pain, : Negative for injury, bleeding, discharge, and swelling, MS/Extremity: Negative for injury and deformity, Skin: Negative for injury, rash, and discoloration, Neuro: Negative for headache, weakness, numbness, tingling, and seizure. 09:15 Abdomen/GI: Positive for nausea and vomiting, Negative for abdominal pain, diarrhea, constipation. 09:15 All other systems are negative. Exam: 09:15 Constitutional: This is a well developed, well nourished patient who is awake, alert, pm1 and in no acute distress. Head/Face: Normocephalic, atraumatic. 09:15 Back: No spinal tenderness. No costovertebral tenderness. Full range of motion. Skin: Warm, dry with normal turgor. Normal color with no rashes, no lesions, and no evidence of cellulitis. MS/ Extremity: Pulses equal, no cyanosis. Neurovascular intact. Full, normal range of motion. 09:15 Cardiovascular: Exam negative for acute changes, Rate: normal, Rhythm: regular, Pulses: no pulse deficits are appreciated. 09:15 Respiratory: Exam negative for acute changes, respiratory distress, shortness of breath. 09:15 Abdomen/GI: Inspection: abdomen appears normal, Palpation: abdomen is soft and non-tender, in all quadrants. 09:15 Neuro: Exam negative for acute changes, Orientation: is normal, Mentation: is normal, Motor: is normal, moves all fours. Vital Signs: 08:37 BP 112 / 59; Pulse 75; Resp 16; Temp 97.1; Pulse Ox 100% on R/A; Weight 74.84 kg; hb Height 5 ft. 10 in. ; Pain 4/10; 11:21 BP 115 / 62; Pulse 80; Resp 16; Pulse Ox 99% on R/A; Pain 0/10; zm 08:37 Body Mass Index 23.67 (74.84 kg, 177.8 cm) hb 08:37 Pain Scale: Adult hb 11:21 Pain Scale: Adult zm MDM: 08:45 Patient medically screened. pm1 09:15 Data reviewed: vital signs. pm1 09:15 Refusal of service: The patient/guardian displays adequate decision making capability pm1 and despite a detailed discussion of alternatives, benefits, risks, and consequences refuses: digital rectal examination for gross blood examination. Patient refused due to likely cause of Pepto Bismol . 10:40 ED course: Patient passed PO challenge. pm1 10:49 Counseling: I had a detailed discussion with the patient and/or guardian regarding: the pm1 historical points, exam findings, and any diagnostic results supporting the discharge/admit diagnosis, lab results, the need for outpatient follow up, to return to the emergency department if symptoms worsen or persist or if there are any questions or concerns that arise at home. 03 09:11 Order name: CBC with Diff; Complete Time: 09:49 pm1 03 09:11 Order name: CMP; Complete Time: 09:56 pm1 03 09:11 Order name: Lipase; Complete Time: 09:56 pm1 08/27 11:35 Order name: Urine Dipstick-Ancillary; Complete Time: 11:36 EDMS 08/27 09:11 Order name: IV Saline Lock; Complete Time: 09:38 pm1 08/27 09:11 Order name: Labs collected and sent; Complete Time: 09:38 pm1 08/27 09:11 Order name: Urine Dipstick-Ancillary (obtain specimen); Complete Time: 09:38 pm1 08/27 09:50 Order name: Urine Dipstick-Ancillary (obtain specimen); Complete Time: 11:41 ss Administered Medications: 09:37 Drug: NS 0.9% IV 1000 ml Route: IV; Rate: 1 bolus; Site: right forearm; ss 10:22 Follow up: IV Status: Completed infusion; IV Intake: 1000ml ss 09:37 Drug: Ondansetron IVP 4 mg Route: IVP; Site: right forearm; ss 10:22 Follow up: Response: No adverse reaction ss 10:22 Drug: Potassium Chloride PO 40 mEq Route: PO; ss 11:49 Follow up: Response: No adverse reaction ss 10:22 Drug: NS 0.9% IV 1000 ml Route: IV; Rate: 1000 ml; Site: right forearm; ss 12:21 Follow up: IV Status: Completed infusion; IV Intake: 1000ml ss 10:22 Drug: Ondansetron IVP 4 mg Route: IVP; Site: right forearm; ss 11:49 Follow up: Response: No adverse reaction ss 11:49 Drug: Promethazine IVP 12.5 mg Route: IVP; Site: right forearm; ss 12:21 Follow up: Response: No adverse reaction; Nausea is decreased ss Disposition: 15:19 Co-signature as Attending Physician, Peng Jarquin MD. rn Disposition Summary: 08/27/22 11:24 Discharge Ordered Location: Home pm1 Problem: new pm1 Symptoms: have improved pm1 Condition: Stable pm1 Diagnosis - Nausea pm1 - Vomiting pm1 - Dehydration pm1 Followup: pm1 - With: Emergency Department - When: - Reason: Worsening of condition Followup: pm1 - With: Private Physician - When: 2 - 3 days - Reason: Recheck today's complaints, Continuance of care, Re-evaluation by your physician Discharge Instructions: - Discharge Summary Sheet pm1 - Dehydration, Adult pm1 - Nausea, Adult pm1 - Rehydration, Adult pm1 - Vomiting, Adult pm1 Forms: - Medication Reconciliation Form pm1 - Thank You Letter pm1 - Antibiotic Education pm1 - Prescription Opioid Use pm1 - Work release form eb Prescriptions: - Zofran 4 mg Oral Tablet - take 1 tablet by ORAL route every 8 hours As needed; 12 tablet; Refills: 0, pm1 Product Selection Permitted - promethazine 25 mg Oral Tablet - take 1 tablet by ORAL route every 6 hours As needed; 20 tablet; Refills: 0, pm1 Product Selection Permitted Signatures: Dispatcher [employer] EDPeng Saldivar MD MD rn Smirch, Shelby, RN RN Enrico Ferrari NP MANAGER WOUND CARE pm1 Megan Red RN RN
--- NOTE | 2022-09-11 15:28 | ER ---
Nurse's Notes [facility] Name: Mynor Soto Age: 22 yrs Sex: Male : 2000 Arrival Date: 08/27/2022 Time: 08:35 Bed 11 Private MD: Diagnosis: Nausea;Vomiting;Dehydration Presentation: 08/27 08:37 Chief complaint: Black stool and N/V x 3-4 days. Coronavirus screen: At this time, the hb client does not indicate any symptoms associated with coronavirus-19. Ebola Screen: No symptoms or risks identified at this time. Initial Sepsis Screen: Does the patient meet any 2 criteria? No. Patient's initial sepsis screen is negative. Does the patient have a suspected source of infection? No. Patient's initial sepsis screen is negative. Risk Assessment: Do you want to hurt yourself or someone else? Patient reports no desire to harm self or others. Onset of symptoms was August 22, 2022. 08:37 Method Of Arrival: Ambulatory 08:37 Acuity: SHEFALI 3 hb Historical: - Allergies: 08:39 No Known Allergies; hb Screenin:38 [facility] ED Fall Risk Assessment (Adult) History of falling in the last 3 months, ss including since admission No falls in past 3 months (0 pts). Abuse screen: Denies threats or abuse. Denies injuries from another. Nutritional screening: No deficits noted. Tuberculosis screening: Never had TB. Assessment: 09:38 General: Appears comfortable, Behavior is anxious, crying, Reports feeling ill for 2-3 ss days, Denies fever. Pain: Complains of pain in abdomen Pain currently is 4 out of 10 on a pain scale. Neuro: Level of Consciousness is awake, alert, obeys commands, Oriented to person, place, time, situation, [place] Cutter are equal bilaterally. Respiratory: Airway is patent Respiratory effort is even, unlabored, Respiratory pattern is regular, symmetrical. GI: Reports nausea, vomiting, dark stools x 2 days. GI: Abdomen is non-distended. Derm: Skin is intact, is healthy with good turgor, Skin is dry, Skin is pink, warm \T\ dry. normal. Musculoskeletal: Circulation, motion, and sensation intact. Range of motion: intact in all extremities, Swelling absent. 10:23 Reassessment: PT reports feeling a little better. Still a little nauseated. Repeat dose ss of Zofran given. Pt is thankful for care received. 10:50 Reassessment: JONELLE Weston at bedside discussing results and POC. jl7 11:58 Reassessment: upon discharge, patient began dry heaving again. JONELLE Weston notified. ss Phenergan administered. Will reassess patient before he leaves. 12:21 Reassessment: Patient appears in no apparent distress at this time. Patient and/or ss family updated on plan of care and expected duration. Pain level reassessed. Patient is alert, oriented x 3, equal unlabored respirations, skin warm/dry/pink. Patient states feeling better. Patient states symptoms have improved. Vital Signs: 08:37 BP 112 / 59; Pulse 75; Resp 16; Temp 97.1; Pulse Ox 100% on R/A; Weight 74.84 kg; hb Height 5 ft. 10 in. ; Pain 4/10; 11:21 BP 115 / 62; Pulse 80; Resp 16; Pulse Ox 99% on R/A; Pain 0/10; zm 08:37 Body Mass Index 23.67 (74.84 kg, 177.8 cm) hb 08:37 Pain Scale: Adult hb 11:21 Pain Scale: Adult zm ED Course: 08:35 Patient arrived in ED. am2 08:37 Enrico Ferrari NP is PHCP. pm1 08:37 Peng Jarquin MD is Attending Physician. pm1 08:39 Triage completed. hb 09:19 Radha Olson, SHYANN is Primary Nurse. ss 09:24 Inserted saline lock: 20 gauge in right forearm, using aseptic technique. Blood ss collected. 09:38 Patient has correct armband on for positive identification. ss 11:49 No provider procedures requiring assistance completed. ss 12:22 IV discontinued, intact, bleeding controlled, No redness/swelling at site. Pressure ss dressing applied. Administered Medications: 09:37 Drug: NS 0.9% IV 1000 ml Route: IV; Rate: 1 bolus; Site: right forearm; ss 10:22 Follow up: IV Status: Completed infusion; IV Intake: 1000ml ss 09:37 Drug: Ondansetron IVP 4 mg Route: IVP; Site: right forearm; ss 10:22 Follow up: Response: No adverse reaction ss 10:22 Drug: Potassium Chloride PO 40 mEq Route: PO; ss 11:49 Follow up: Response: No adverse reaction ss 10:22 Drug: NS 0.9% IV 1000 ml Route: IV; Rate: 1000 ml; Site: right forearm; ss 12:21 Follow up: IV Status: Completed infusion; IV Intake: 1000ml ss 10:22 Drug: Ondansetron IVP 4 mg Route: IVP; Site: right forearm; ss 11:49 Follow up: Response: No adverse reaction ss 11:49 Drug: Promethazine IVP 12.5 mg Route: IVP; Site: right forearm; ss 12:21 Follow up: Response: No adverse reaction; Nausea is decreased ss Medication: 09:38 VIS not applicable for this client. ss Intake: 10:22 IV: 1000ml; Total: 1000ml. ss 12:21 IV: 1000ml; Total: 2000ml. ss Outcome: 11:24 Discharge ordered by MD. pm1 11:49 Condition: improved ss 11:49 Discharge instructions given to patient, Instructed on discharge instructions, follow up and referral plans. medication usage, Demonstrated understanding of instructions, follow-up care, medications, Prescriptions given X 2. 12:22 Discharged to home ambulatory. ss 12:22 Patient left the ED. ss Signatures: Radha Olson RN RN Enrico Ferrari, DOG WALKER DOG WALKER pm1 Megan Red RN RN Brian Navarro RN RN jl7 Tamara Connelly Brie Goldman
== END 2022-08-27 12:22 | disposition home or self-care (01) ==
LOC: ER 08:33
DX: R11.2 Nausea with vomiting, unspecified (principal); E86.0 Dehydration
CPT/HCPCS: 96361; 85025; 36415; 81003; 83690; 80053; 96375; 96374; 99284; J2550; J2405 ×2; J7030 ×2

== ENCOUNTER 2024-03-04 12:56 | Inpatient (IN) | payer OTHER ==
[2024-03-04] MEDS ORDERED: NA CHLORIDE 0.9% 1,000 ML ONE ×2 (13:31→15:00)
[2024-03-04 13:51] LABS: Absolute Lymphocytes (CBC) 1.1 K/uL (0.7-4.9); Absolute Monocytes 1.2 K/uL (0.1-1.3); Absolute Neutrophil 17.3 K/uL (1.8-8.0); Basophils % 0.2 % (0-1.3); Hematocrit 49.2 % (39.6-49.0); Hemoglobin 16.1 g/dL (13.6-17.9); Lymphocytes % 5.5 % (15.3-44.8); MCH 27.5 pg (27.0-35.0); MCHC 32.7 g/dL (32.0-36.0); MCV 84.1 fL (80-100); MPV 9.3 fL (7.6-11.3); Monocytes % 6.1 % (3.3-12.3); Neutrophils % 88.2 % (41.7-73.7); Platelets 291 thou/uL (152-406); RBC Red Blood Cell Count 5.85 M/uL (4.33-5.43); Red Cell Distribution Width 14.7 % (12.1-15.2)
[2024-03-04 14:09] LABS: Albumin 4.8 g/dL (3.4-5.0); Albumin/Globulin Ratio 1.2 (1.1-1.8); Anion Gap 15.6 mEq/L (5.0-15.0); Bilirubin Total 1.1 mg/dL (0.2-1.0); Potassium 3.6 mEq/L (3.5-5.1); Protein, Total 8.8 g/dL (6.4-8.2)
[2024-03-04 14:35] LABS: Blood Morphology Comment NOT SEEN (NOT SEEN); Platelet Estimate ADEQ; White Blood Cell Scan OK (OK)
--- NOTE | 2024-03-04 15:24 | RAD REPORT ---
EXAM DESCRIPTION: CT - Abdomen Pelvis Wo Contrast - 03/04/2024 3:09 pm CLINICAL HISTORY: Abdominal pain COMPARISON: 2021 TECHNIQUE: Computed axial tomography of the abdomen and pelvis was obtained. IV and oral contrast we re not requested. All CT scans are performed using dose optimization technique as appropriate and may include automated exposure control or mA/KV adjustment according to patient size. FINDINGS: The evaluation of solid organs, vessels and bowel is limited secondary to the lack of con trast administration. The liver, spleen, pancreas, adrenals and kidneys appear grossly normal. The appendix is normal. There is no evidence of diverticulitis. IMPRESSION: No acute abnormality is displayed.
--- NOTE | 2024-03-04 15:51 | ER ---
Nurse's Notes [facility] Name: Mynor Soto Age: 24 yrs Sex: Male : 2000 Arrival Date: 03/04/2024 Time: 12:56 Bed 8 Private MD: Diagnosis: Acute kidney failure, unspecified;Cyclical vomiting, not intractable Presentation: 03/04 13:09 Chief complaint: Patient states: Vomiting X2 days. Pt states that he cannot keep cm10 anything down. Pt actively vomiting in triage. Coronavirus screen: Client denies travel out of the [place] in the last 14 days. At this time, the client does not indicate any symptoms associated with coronavirus-19. Ebola Screen: Patient denies travel to an Ebola-affected area in the 21 days before illness onset. No symptoms or risks identified at this time. Initial Sepsis Screen: Does the patient meet any 2 criteria? HR > 90 bpm. Does the patient have a suspected source of infection? No. Patient's initial sepsis screen is negative. Risk Assessment: Do you want to hurt yourself or someone else? Patient reports no desire to harm self or others. Onset of symptoms was March 02, 2024. 13:09 Method Of Arrival: Ambulatory cm10 13:09 Acuity: SHEFALI 3 cm10 Triage Assessment: 13:10 General: Appears in no apparent distress. uncomfortable, Behavior is cooperative. cm10 Neuro: No deficits noted. Level of Consciousness is awake, alert, obeys commands, Oriented to person, place, time, situation, Appropriate for age. Historical: - Allergies: 13:10 No Known Allergies; cm10 - Home Meds: 13:10 None [Active]; cm10 - PMHx: 13:10 None; cm10 - PSHx: 13:10 None; cm10 - Immunization history:: Adult Immunizations up to date. - Infectious Disease History:: Denies. - Social history:: Smoking status: Patient denies any tobacco usage or history of. Patient uses street drugs, marijuana. Screenin:44 [facility] ED Fall Risk Assessment (Adult) History of falling in the last 3 months, cm10 including since admission No falls in past 3 months (0 pts) Confusion or Disorientation No (0 pts) Intoxicated or Sedated No (0 pts) Impaired Gait No (0 pts) Mobility Assist Device Used No (0 pt) Altered Elimination No (0 pt) Score/Fall Risk Level 0 - 2 = Low Risk Oriented to surroundings, Maintained a safe environment, Hourly rounding (assess needs \T\ fall precautionary measures) done. Abuse screen: Denies threats or abuse. Denies injuries from another. Nutritional screening: No deficits noted. Tuberculosis screening: No symptoms or risk factors identified. Assessment: 14:15 Reassessment: Pt laying in bed with eyes closed, requested pt to provide urine sample, jl7 significant other at bedside reports she will assist him in collecting urine. Pt reports decreased nausea Patient states symptoms have improved. 15:52 Reassessment: Steph PIZANO at bedside discussing results and POC, plan to keep pt for DARLYN. jl7 Vital Signs: 13:09 Pulse 120; Resp 19; Temp 98.1; Pulse Ox 97% on R/A; Weight 72.57 kg; Height 5 ft. 10 cm10 in. ; Pain 6/10; 13:11 BP 128 / 90; cm10 15:44 BP 111 / 88; Pulse 77; Resp 14; Pulse Ox 98% ; ko1 16:15 BP 112 / 72; Pulse 76; Resp 15; Pulse Ox 98% ; jl7 17:30 BP 92 / 47; Pulse 67; Resp 15; Pulse Ox 97% ; jl7 13:09 Body Mass Index 22.96 (72.57 kg, 177.8 cm) cm10 13:09 Pain Scale: Adult cm10 ED Course: 12:57 Patient arrived in ED. ra3 13:01 Susanna Milan PA-C is PHCP. sb4 13:01 Long Young MD is Attending Physician. sb4 13:10 Triage completed. cm10 13:11 Arm band placed on Patient placed in an exam room, on a stretcher. cm10 13:21 Brian Navarro, SHYANN is Primary Nurse. jl7 13:43 CBC with Diff Sent. cm10 13:43 CMP Sent. cm10 13:43 Lipase Sent. cm10 13:44 Patient has correct armband on for positive identification. Bed in low position. Call cm10 light in reach. Provided Education on: ER process nd procedures.. Pulse ox on. NIBP on. 13:44 Initial lab(s) drawn, by ED staff, sent to lab. Inserted saline lock: 20 gauge in right cm10 antecubital area, using aseptic technique. Blood collected. Flushed with 10 mL NS. 15:11 CT Abd/Pelvis - Without Contrast In Process Unspecified. EDMS 15:49 Gavino Jarquin MD is Hospitalizing Provider. sb4 15:52 No provider procedures requiring assistance completed. Patient admitted, IV remains in jl7 place. intact, No redness/swelling at site. Administered Medications: 13:43 Drug: NS 0.9% IV 1000 ml IV at 1 bolus Per protocol; 1000 mL bolus Route: IV; Rate: 1 cm10 bolus; Site: right antecubital; 14:32 Follow up: Response: No adverse reaction; IV Status: Completed infusion; IV Intake: jl7 1000ml 13:43 Drug: Droperidol IVP 1.25 mg IVP once Route: IVP; Site: right antecubital; cm10 14:32 Follow up: Response: No adverse reaction; Nausea is decreased jl7 15:01 Drug: NS 0.9% IV 1000 ml IV at 1 bolus Per protocol; 1000 mL bolus Route: IV; Rate: 1 ko1 bolus; Site: right antecubital; 16:00 Follow up: Response: No adverse reaction; IV Status: Completed infusion; IV Intake: jl7 1000ml Medication: 14:15 VIS not applicable for this client. jl7 Intake: 14:32 IV: 1000ml; Total: 1000ml. jl7 16:00 IV: 1000ml; Total: 2000ml. jl7 Outcome: 15:50 Decision to Hospitalize by Provider. sb4 17:45 Admitted to Med/surg accompanied by tech, via wheelchair, room 407, with chart, jl7 17:45 Condition: stable 17:45 Discharge instructions given to patient, Instructed on the need for admit, Demonstrated understanding of instructions, 17:52 Patient left the ED. jl7 Signatures: Dispatcher [employer] EDMS Brian Navarro RN RN jl7 Melody De Leon RN RN [email or web address] Susanna Milan PA-C PA-C sb4 Sheela Dickens RN RN cm10 Bonita Navarrete ra3
--- NOTE | 2024-03-04 15:51 | EDPHYS ---
Physician Documentation [facility] Name: Mynor Soto Age: 24 yrs Sex: Male : 2000 Arrival Date: 03/04/2024 Time: 12:56 Bed 8 Private MD: ED Physician Long Young HPI: 03/04 13:43 This 24 yrs old Male presents to ER via Ambulatory with complaints of Vomiting.sb4 13:44 Patient reports intractable nausea vomiting x 24 hours. He states that he experiences sb4 nausea and vomiting every morning, but it usually resolves after taking Zofran and is never this severe. He does admit to smoking marijuana, but states that even when he does not, he still vomits like this. He states that he has never been formally diagnosed with anything. He denies any diarrhea. Does endorse some lower abdominal cramping. Historical: - Allergies: 13:10 No Known Allergies; cm10 - Home Meds: 13:10 None [Active]; cm10 - PMHx: 13:10 None; cm10 - PSHx: 13:10 None; cm10 - Immunization history:: Adult Immunizations up to date. - Infectious Disease History:: Denies. - Social history:: Smoking status: Patient denies any tobacco usage or history of. Patient uses street drugs, marijuana. ROS: 13:45 Constitutional: Negative for fever, chills, and weight loss, sb4 13:45 Abdomen/GI: Positive for abdominal pain, nausea and vomiting, 13:45 All other systems are negative, Exam: 13:45 Head/Face: Normocephalic, atraumatic. Eyes: Extra-ocular motions intact. Periorbital sb4 areas with no swelling, redness, or edema. ENT: Mucous membranes moist. Respiratory: Lungs have equal breath sounds bilaterally, clear to auscultation and percussion. No rales, rhonchi or wheezes noted. No increased work of breathing, no retractions or nasal flaring. Abdomen/GI: Soft, non-tender, no distension. Skin: Warm, dry with normal turgor. Normal color with no rashes, no lesions, and no evidence of cellulitis. 13:45 Constitutional: The patient appears alert, awake, restless, uncomfortable, 13:45 Cardiovascular: Rate: tachycardic, Rhythm: regular, Vital Signs: 13:09 Pulse 120; Resp 19; Temp 98.1; Pulse Ox 97% on R/A; Weight 72.57 kg; Height 5 ft. 10 cm10 in. ; Pain 6/10; 13:11 BP 128 / 90; cm10 15:44 BP 111 / 88; Pulse 77; Resp 14; Pulse Ox 98% ; ko1 16:15 BP 112 / 72; Pulse 76; Resp 15; Pulse Ox 98% ; jl7 17:30 BP 92 / 47; Pulse 67; Resp 15; Pulse Ox 97% ; jl7 13:09 Body Mass Index 22.96 (72.57 kg, 177.8 cm) cm10 13:09 Pain Scale: Adult cm10 MDM: 13:06 Patient medically screened. sb4 14:23 Data reviewed: vital signs, nurses notes, lab test result(s), radiologic studies. sb4 15:49 Counseling: I had a detailed discussion with the patient and/or guardian regarding the sb4 historical points, exam findings, and any diagnostic results supporting the discharge/admit diagnosis, lab results, radiology results, the need for further work-up and treatment in the hospital. 03/04 13:24 Order name: CBC with Diff; Complete Time: 14:35 sb4 03/04 13:24 Order name: CMP; Complete Time: 14:12 sb4 03/04 13:24 Order name: Lipase; Complete Time: 14:12 sb4 03/04 13:24 Order name: Urinalysis w/ reflexes; Complete Time: 16:05 sb4 03/04 13:24 Order name: UDS; Complete Time: 16:18 sb4 03/04 13:57 Order name: CBC Smear Scan; Complete Time: 14:35 EDMS 03/04 14:36 Order name: CT Abd/Pelvis - Without Contrast; Complete Time: 15:41 sb4 03/04 13:24 Order name: IV Saline Lock; Complete Time: 13:43 sb4 03/04 13:24 Order name: Labs collected and sent; Complete Time: 13:43 sb4 Administered Medications: 13:43 Drug: NS 0.9% IV 1000 ml IV at 1 bolus Per protocol; 1000 mL bolus Route: IV; Rate: 1 cm10 bolus; Site: right antecubital; 14:32 Follow up: Response: No adverse reaction; IV Status: Completed infusion; IV Intake: jl7 1000ml 13:43 Drug: Droperidol IVP 1.25 mg IVP once Route: IVP; Site: right antecubital; cm10 14:32 Follow up: Response: No adverse reaction; Nausea is decreased jl7 15:01 Drug: NS 0.9% IV 1000 ml IV at 1 bolus Per protocol; 1000 mL bolus Route: IV; Rate: 1 ko1 bolus; Site: right antecubital; 16:00 Follow up: Response: No adverse reaction; IV Status: Completed infusion; IV Intake: jl7 1000ml Disposition: 16:04 Co-signature as Attending Physician, Long Young MD I agree with the assessment and jose plan of care. Disposition Summary: 03/04/24 15:50 Hospitalization Ordered Notes: Hospitalization Status: Observation sb4 Provider: Gavino Jarquin sb4 Location: Telemetry/MedSurg (observation) sb4 Condition: Fair sb4 Problem: new sb4 Symptoms: are unchanged sb4 Bed/Room Type: Standard sb4 Room Assignment: 407(03/04/24 16:43) eb Diagnosis - Acute kidney failure, unspecified sb4 - Cyclical vomiting, not intractable sb4 Forms: - Medication Reconciliation Form sb4 - SBAR form sb4 - Leadership Thank You Letter sb4 Signatures: Dispatcher [employer] EDLong Tuttle MD MD cha Botello, Elizabeth eb Oliver, Kathy, RN RN ko1 Susanna Milan PAHuyC PAFranky sb4 Sheela Dickens RN RN cm10 Brian Navarro RN jl7 Corrections: (The following items were deleted from the chart) 14:41 13:25 Abdomen Pelvis W Con+CT.RAD.BRZ ordered. EDMS EDMS 14:41 14:41 Abdomen ordered. EDMS EDMS 16:43 15:50 sb4 eb
[2024-03-04 16:00] LABS: Specific Gravity 1.028 (1.005-1.030); Sqamous Epithelial <5 /HPF (None Seen); Urine Bacteria None Seen /HPF (<20); Urine Bilirubin NEGATIVE (Negative); Urine Blood Negative (Negative); Urine Clarity Turbid (Clear); Urine Color Yellow (Yellow); Urine Culture Reflex Order NOT NEEDED; Urine Glucose NEGATIVE (Negative); Urine Ketones 1+ (Negative); Urine Microscopic Reflex YN ORDER UMIC; Urine Mucus Slight /HPF (None Seen); Urine Nitrite NEGATIVE (Negative); Urine Protein TRACE (Negative); Urine RBC None Seen /HPF (None Seen); Urine Urobilinogen Normal (Normal); Urine WBC <5 /HPF (<5)
[2024-03-04 16:12] LABS: Barbiturates NEGATIVE (NEGATIVE); Benzodiazepines POSITIVE (NEGATIVE); Cocaine NEGATIVE (NEGATIVE); METHAMPHETAM NEGATIVE (NEGATIVE); Methadone NEGATIVE (NEGATIVE); Opiates NEGATIVE (NEGATIVE); Phencyclidine NEGATIVE (NEGATIVE); THC Cannibis POSITIVE (NEGATIVE)
[2024-03-04] MEDS ORDERED: SODIUM CHLORIDE 0.9% 10ML INJ IV PRN (17:05)
[2024-03-04 17:09] VITALS: BMI 22.9
--- NOTE | 2024-03-04 17:36 | P.HP ---
Certification for Inpatient Patient admitted to: Observation With expected LOS: <2 Midnights Patient will require the following post-hospital care: None Practitioner: I am a practitioner with admitting privileges, knowledge of patient current condition, hospital course, and medical plan of care. Services: Services provided to patient in accordance with Admission requirements found in Title 42 Section 412.3 of the Code of Federal Regulations Patient History Date of Service: 03/04/24 Reason for admission: Intractable vomiting, DARLYN History of Present Illness: 24-year-old otherwise healthy male presents emergency department chief complaint of nausea/vomiting. He reports for the last 3 days he has been having persistent nausea vomiting and unable to hold much food or fluids down. He was similar admission about 2 years ago that resolved with IV fluids. He admits to regular marijuana use, occasional alcohol use, reports that he has issues with n ausea nearly daily. Patient was evaluated in the emergency department his labs are significant for leukocytosis, acute kidney injury with a creatinine of 2.02, UDS positive for benzodiazepines and THC. 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 - Family History Mother Notes: crohns - Social History Alcohol use: Yes CD- Drugs: Yes Caffeine use: Yes Place of Residence: Home Review of Systems 10-point ROS is otherwise unremarkable Gastrointestinal: Nausea, Vomiting Physical Examination - Physical Exam General: Alert, In no apparent distress, Oriented x3 HEENT: Atraumatic, PERRLA, Mucous membr. moist/pink, EOMI, Sclerae nonicteric Neck: Supple, 2+ carotid pulse no bruit, No LAD, Without JVD or thyroid abnormality Respiratory: Clear to auscultation bilaterally, Normal air movement Cardiovascular: Regular rate/rhythm, Normal S1 S2 Gastrointestinal: Normal bowel sounds, No tenderness Musculoskeletal: No tenderness Integumentary: No rashes Neurological: Normal gait, Normal speech, Normal strength at 5/5 x4 extr, Normal tone, Normal affect Lymphatics: No axilla or inguinal lymphadenopathy - Studies Laboratory Data (last 24 hrs) 03/04/24 03/04/24 13:39 13:39 WBC 19.60 H Hgb 16.1 Hct 49.2 H Plt Count 291 Sodium 138 Potassium 3.6 BUN 33 H Creatinine 2.02 H Glucose 167 H Total Bilirubin 1.1 H AST 13 L ALT 29 Alkaline Phosphatase 62 Lipase 19 Assessment and Plan - Plan Assessment: Intractable nausea and vomiting Acute kidney injury Leukocytosis Mild hypercalcemia Plan: Intractable nausea and vomiting Acute kidney injury Leukocytosis Mild hypercalcemia N.p.o., okay for ice chips and sips of water CT abdomen and pelvis negative for acute findings, does not show any obstructive findings Continue IV fluids overnight, as needed antiemetics, twice daily PPI Counseled on need for follow-up with GI, cessation of marijuana Advance diet as tolerated DVT PPX: Lovenox Code status: Full Discharge Plan: Home Plan to discharge in: 24 Hours - Advance Directives Does patient have a Living Will: No Does patient have a Durable POA for Healthcare: No - Code Status/Comfort Care Code Status Assessed: Yes (Full code) Critical Care: No Time Spent Managing Pts Care (In Minutes): 57
[2024-03-04] MEDS: Ringers Lactate 1,000 ML IV SCH (18:09)
[2024-03-04] MEDS: ONDANSETRON 4 MG/2 ML VIAL IV PRN (19:54)
[2024-03-04] MEDS: PANTOPRAZOLE 40 MG INJ IVP SCH (19:56)
[2024-03-05] MEDS: PROMETHAZINE INJ 25 MG/ML AMP IV PRN (02:46)
[2024-03-05 06:58] LABS: Absolute Basophils 0.1 K/uL (0-0.5); Absolute Eosinophils 0.1 K/uL (0-0.5); Absolute Lymphocytes (CBC) 1.8 K/uL (0.7-4.9); Absolute Monocytes 0.8 K/uL (0.1-1.3); Absolute Neutrophil 9.8 K/uL (1.8-8.0); Basophils % 0.5 % (0-1.3); Eosinophils % 0.8 % (0-4.4); Hematocrit 40.4 % (39.6-49.0); Hemoglobin 12.8 g/dL (13.6-17.9); Lymphocytes % 14.4 % (15.3-44.8); MCH 27.1 pg (27.0-35.0); MCHC 31.8 g/dL (32.0-36.0); MCV 85.5 fL (80-100); MPV 9.6 fL (7.6-11.3); Monocytes % 6.1 % (3.3-12.3); Neutrophils % 78.2 % (41.7-73.7); Platelets 195 thou/uL (152-406); RBC Red Blood Cell Count 4.72 M/uL (4.33-5.43); Red Cell Distribution Width 14.7 % (12.1-15.2)
[2024-03-05] MEDS: ENOXAPARIN 40 MG/0.4 ML SQ SCH (09:03)
--- NOTE | 2024-03-05 17:32 | P.PN ---
Date of Service: 03/05/24 Subjective: still with nausea/vomiting changed to inpatient continue treatment ROS: 10 point ROS as noted above, otherwise negative Physical exam GEN: Alert, oriented, NAD HEENT: Normal conjunctiva, sclera anicteric CV: Regular rate and rhythm, no edema Pulm: Nonlabored respirations on room air ABD: Soft, nontender, nondistended MSK: No joint tenderness Integumentary: No rashes Neuro: Normal speech, normal affect Vitals reviewed Assessment: Intractable nausea and vomiting Acute kidney injury Leukocytosis Mild hypercalcemia Plan: Intractable nausea and vomiting Acute kidney injury Leukocytosis Mild hypercalcemia Full liquid diet, advance as tolerated Continue as needed Phenergan, PPI twice daily CT abdomen and pelvis negative for acute findings, does not show any obstructive findings Counseled on need for follow-up with GI, cessation of marijuana Recheck BMP in the a.m. DVT PPX: Lovenox Code status: Full Discharge Plan: Home Plan to discharge in: 24 Hours Time Spent Managing Pts Care (In Minutes): 35
[2024-03-05 22:59] VITALS: O2SAT 99
[2024-03-06 06:53] LABS: Absolute Eosinophils 0.3 K/uL (0-0.5); Absolute Lymphocytes (CBC) 2.4 K/uL (0.7-4.9); Absolute Monocytes 0.6 K/uL (0.1-1.3); Absolute Neutrophil 4.2 K/uL (1.8-8.0); Basophils % 0.6 % (0-1.3); Eosinophils % 3.7 % (0-4.4); Hematocrit 40.7 % (39.6-49.0); Hemoglobin 13.1 g/dL (13.6-17.9); Lymphocytes % 32.5 % (15.3-44.8); MCH 27.7 pg (27.0-35.0); MCHC 32.2 g/dL (32.0-36.0); MCV 85.9 fL (80-100); MPV 9.3 fL (7.6-11.3); Neutrophils % 55.2 % (41.7-73.7); Platelets 175 thou/uL (152-406); RBC Red Blood Cell Count 4.73 M/uL (4.33-5.43)
[2024-03-06 07:09] LABS: Anion Gap 7.9 mEq/L (5.0-15.0); Potassium 3.9 mEq/L (3.5-5.1)
--- NOTE | 2024-03-06 10:24 | P.DS ---
Admission Date: 03/05/24 Discharge Date: 03/06/24 Disposition: ROUTINE DISCHARGE Discharge Condition: GOOD Reason for Admission: Intractable vomiting, DARLYN Brief History of Present Illness: 24-year-old otherwise healthy male presents emergency department chief complaint of nausea/vomiting. He reports for the last 3 days he has been having persistent nausea vomiting and unable to hold much food or fluids down. He was similar admission about 2 years ago that resolved with IV fluids. He admits to regular marijuana use, occasional alcohol use, reports that he has issues with nausea nearly daily. Patient was evaluated in the emergency department his labs are significant for leukocytosis, acute kidney injury with a creatinine of 2.02, UDS positive for benzodiazepines and THC. Patient be admitted under observation for intractable vomiting, DARLYN Hospital Course: Assessment: Intractable nausea and vomiting Acute kidney injury Leukocytosis Mild hypercalcemia Patient was admitted to the hospital for DARLYN, intractable nausea/vomiting. He was treated with IV fluids, antiemetics and PPI and had resolution of his symptoms. Overnight he tolerated regular diet, eating some salad and pasta and is feeling well this morning. His renal function has returned to normal, CT abdomen pelvis showed no obstructive uropathy or other acute findings. Discussed need for cessation of marijuana to see if this is contributing to his vomiting/cyclical vomiting syndrome as he reports his symptoms near daily. Also discussed close follow-up with GI for further evaluation. Sent with as needed prescription for Phenergan, recommend taking omeprazole [id number] for the next 2 weeks and following up with GI outpatient. Vital Signs/Physical Exam: Temp Pulse Resp BP Pulse Ox 98.1 F 62 18 120/70 99 03/06/24 04:00 03/06/24 04:00 03/06/24 04:00 03/06/24 04:00 03/06/24 04:00 General: Alert, In no apparent distress, Oriented x3 HEENT: Atraumatic, PERRLA Neck: Supple, JVD not distended Respiratory: Clear to auscultation bilaterally, Normal air movement Cardiovascular: Regular rate/rhythm, Normal S1 S2 Gastrointestinal: Normal bowel sounds, No tenderness Musculoskeletal: No tenderness Integumentary: No rashes Neurological: Normal speech, Normal tone, Normal affect Laboratory Data at Discharge: WBC 7.50 thou/uL (4.3-10.9) 03/06/24 06:20 Hgb 13.1 g/dL (13.6-17.9) L 03/06/24 06:20 Hct 40.7 % (39.6-49.0) 03/06/24 06:20 Plt Count 175 thou/uL (152-406) 03/06/24 06:20 Sodium 141 mEq/L (136-145) 03/06/24 06:20 Potassium 3.9 mEq/L (3.5-5.1) 03/06/24 06:20 BUN 12 mg/dL (7-18) 03/06/24 06:20 Creatinine 1.01 mg/dL (0.70-1.30) 03/06/24 06:20 Glucose 87 mg/dL (74-106) 03/06/24 06:20 Total Bilirubin 1.1 mg/dL (0.2-1.0) H 03/04/24 13:39 AST 13 U/L (15-37) L 03/04/24 13:39 ALT 29 U/L (16-61) 03/04/24 13:39 Alkaline Phosphatase 62 U/L (45-117) 03/04/24 13:39 Lipase 19 U/L (13-75) 03/04/24 13:39 Home Medications: Esomeprazole Magnesium [Nexium] 20 mg PO DAILY 30 Days #30 cap 02/22/22 Sertraline [Zoloft*] 50 mg PO DAILY 30 Days #30 tab 02/22/22 ondansetron HCL [Ondansetron HCl] 8 mg PO Q8H PRN #20 tab 02/22/22 Promethazine Tab [Phenergan] 12.5 mg PO Q6HP PRN #15 tab 03/05/24 New Medications: Promethazine Tab [Phenergan] 12.5 mg PO Q6HP PRN #15 tab PRN Reason: Nausea / Vomiting Physician Discharge Instructions: Patient was admitted to the hospital for DARLYN, intractable nausea/vomiting. He was treated with IV fluids, antiemetics and PPI and had resolution of his symptoms. Overnight he tolerated regular diet, eating some salad and pasta and is feeling well this morning. His renal function has returned to normal, CT abdomen pelvis showed no obstructive uropathy or other acute findings. Discussed need for cessation of marijuana to see if this is contributing to his vomiting/cyclical vomiting syndrome as he reports his symptoms near daily. Also discussed close follow-up with GI for further evaluation. Sent with as needed prescription for Phenergan, recommend taking omeprazole [id number] for the next 2 weeks and following up with GI outpatient. Diet: [place] Activity: Ad kat Followup: NONE,NONE [Primary Care Provider] - 1 Week Time spent managing pt's care (in minutes): 37
[2024-03-06 11:00] VITALS: BP 128/72; TEMP 98.4
== END 2024-03-06 10:30 | disposition home or self-care (01) | DRG 684 ==
LOC: ER 12:56 → ERHOLD 16:33 → 4TH 17:38 → OBSVTOIN 03-05 17:25
PROVIDERS: ADMIT Hospitalist; ATTEND Hospitalist
DX: N17.9 Acute kidney failure, unspecified (principal); E83.52 Hypercalcemia; D72.829 Elevated white blood cell count, unspecified; Z79.899 Other long term (current) drug therapy
CPT/HCPCS: 36415; 74176; 80048; 80053; 80307; 81001; 83690; 85025; 96361; 96374; 99285; G0378; J1650; J2405; J2470; J2550; J7030; J7120